=== PATIENT | female | born 1990 | race Hispanic/Latino ===

== ENCOUNTER 2017-12-21 18:42 | Emergency (ER) | payer BC, OTHER ==
[~2017-12-21 18:42] MED LIST: ISOVUE-370 76%-LOCM 1 ML ONE
[2017-12-21 19:51] LABS: Hemoglobin 10.1 g/dL (12.0-16.0); Mean Corpuscular HGB CONC 32.8 g/dL (32.0-36.0); Mean Corpuscular Hemoglobin 25.5 pg (27.0-31.0); Mean Corpuscular Volume 77.7 fL (78.0-98.0); Mean Platelet Volume 7.6 fL (7.4-10.4); Platelet Count 310 thou/uL (130-400); RBC Distribution Width 16.1 % (11.5-14.5); Red Blood Cell (RBC) Count 3.95 mill/uL (4.20-5.40); White Blood Cell (WBC) Count 3.1 thou/uL (4.8-10.8)
[2017-12-21 20:09] LABS: ALT (SGPT) 8 U/L (8-55); AST (SGOT) 14 U/L (5-34); Albumin 3.7 g/dL (3.5-5.0); Alkaline Phosphatase 114 U/L (40-150); Anion Gap 16 mmol/L (10-20); Anisocytosis SLIGHT = 6-15 cells (100X) (0-5/hpf); BUN (Urea Nitrogen) 9 mg/dL (7.0-18.7); Band 1 % (5-11); Bilirubin, Total 0.8 mg/dL (0.2-1.2); Calc. Creatinine Clearance 0 mL/min (70-130); Calcium 9.4 mg/dL (7.8-10.44); Carbon Dioxide 23 mmol/L (22-29); Chloride 101 mmol/L (98-107); Estimated GFR-MDRD Greater than 90; Globulin 4.4 g/dL (2.4-3.5); Glucose 73 mg/dL (70-105); Hypochromia SLIGHT = 6-15 cells (100X) (0-5/hpf); Lymphocytes 54 % (21-51); MDiff Complete? YES; Microcytosis SLIGHT = 6-15 cells (100X) (0-5/hpf); Monocytes 7 % (0-10); Neutrophil 38 % (42-75); PLT Morphology Comment Appears Adequate; Polychromasia SLIGHT = 2-3 cells (100X) (0-2/hpf); Potassium 3.7 mmol/L (3.5-5.1); Protein, Total 8.1 g/dL (6.0-8.3); Sodium 136 mmol/L (136-145)
[2017-12-22 00:03] LABS: Bilirubin Moderate (Negative); Blood, Urine Moderate (Negative); Clarity CLOUDY (Clear); Glucose, Urine (Dipstick) Negative (Negative); Leukocyte Trace (Negative); Nitrite Negative (Negative); Protein, Urine (Dipstick) 30 mg/dL (Neg-Trace); Specific Gravity, Urine 1.022 (1.002-1.036)
[2017-12-22 00:05] LABS: Bacteria/HPF Rare-Few HPF (None Seen); Hyaline Casts/LPF 7-10 HYALINE CAST LPF (0-3 Hyaline); Pathc Cast-AUWi Flag 0.72 (0-2.49)
[2017-12-22 00:06] LABS: Pregnancy Test - Urine (BHCG) Negative (Negative); Pregu Control Background? CLEAR/WHITE (CLR/WHITE); Pregu Control Bar Appear? YES (CONTROL BAR); Specific Gravity 1.022 (1.002-1.036)
[2017-12-22 00:18] LABS: Renal Epithelial None Seen HPF (0-3); Transitional Epithelial NONE SEEN HPF (0-3)
--- NOTE | 2017-12-22 08:39 | CT ---
PRELIMINARY REPORT/[facility]/EMERGENTY AFTER-HOURS PROCEDURE CT Abdomen and Pelvis With Intravenous Contrast CLINICAL HISTORY: 27 years old, female; Signs and symptoms; Fever and nausea and vomiting; Patient HX: Er 23; F28 prese [facility] ed for abd pain and fever. Pt reports issue has been on and off since june. Pt reports she had h er temp taken recently 103. Pt [facility] and they told her to come here to be evaluated because of her low red and white blood count. Pt reports loss of bartolome ght(10-13lb) since june due to her unable to eat or drink much water because food and water makes he r have gurgling/gas. Pt reports she took bc for 6month straight to keep her from having a period and she stopped and a irregular one which resulted in sharp pain on the right side. TECHNIQUE: Axial computed tomography images of the abdomen and pelvis with intravenous contrast. Coronal reformatted images were created and reviewed. COMPARISON: No relevant prior studies available. FINDINGS: Lung bases: No acute findings. No mass. No consolidation. ABDOMEN: Liver: No acute findings. No mass. Gallbladder and bile ducts: No calcified stones. No ductal dilation. Pancreas: No ductal dilation. No mass. Spleen: No acute findings. No mass. Adrenals: No mass. Kidneys and ureters: Bilateral punctate nonobstructing calculi. No hydronephrosis. No solid mass. Stomach and bowel: No definite evidence of bowel obstruction. Mildly distended air-fluid filled small bowel loops, nonspecific and can be seen with enteritis. Under-distended and air-distended colon segments. Fecal loading and punctate hyperdensities throughout the ascending colon which could relate to food/debris, ingested material. Diverticulosis. PELVIS: Appendix: No findings to suggest acute appendicitis. Bladder: No acute findings. No mass. Reproductive: No acute findings. ABDOMEN and PELVIS: Intraperitoneal space: No acute findings. No free air. No significant fluid collection. Bones/joints: No acute fracture. Soft tissues: No acute findings. Vasculature: No acute findings. No abdominal aortic aneurysm. Lymph nodes: No significant lymphadenopathy. IMPRESSION: Possible enteritis. Findings described above. Thank you for allowing us to participate in the care of your patient. Dictated and Authenticated by: Nikita Kessler MD 12/22/2017 1:25 AM Central Time ([place] & [place]) FINAL REPORT CT ABDOMEN AND PELVIS WITH CONTRAST: HISTORY: Abdominal pain and weight loss. COMPARISON: None. FINDINGS: Findings and impression are concordant with the preliminary report. Punctate bilateral renal calculi , nonobstructive. No other acute inflammatory process in the abdomen or pelvis. POS: ALLA
== END 2017-12-22 01:36 | disposition home or self-care (01) ==
LOC: ERS 18:42
DX: R63.3 Feeding difficulties (principal); D50.0 Iron deficiency anemia secondary to blood loss (chronic); D72.819 Decreased white blood cell count, unspecified; R50.9 Fever, unspecified; F41.9 Anxiety disorder, unspecified; Z79.899 Other long term (current) drug therapy
CPT/HCPCS: 36415; 74177; 80053; 81003; 81015; 81025; 85025; 96360

== ENCOUNTER 2018-11-23 14:44 | Inpatient (IN) | payer BC, OTHER ==
[2018-11-23] MEDS ORDERED: Lorazepam 2 MG/ML VIAL ONE (15:34)
--- NOTE | 2018-11-23 15:44 | RAD ---
XR Chest 1 View Portable HISTORY: Sepsis COMPARISON: None FINDINGS: The heart size is normal. The lungs are well expanded without focal areas of consolidation, pneumothorax or pleural effusions. IMPRESSION: No radiographic evidence of acute cardiopulmonary process.
[2018-11-23 15:46] LABS: Hemoglobin 7.6 g/dL (12.0-16.0); Mean Corpuscular HGB CONC 30.1 g/dL (32.0-36.0); Mean Corpuscular Hemoglobin 22.2 pg (27.0-31.0); Mean Corpuscular Volume 73.7 fL (78.0-98.0); Mean Platelet Volume 8.7 fL (7.4-10.4); Platelet Count 269 thou/uL (130-400); RBC Distribution Width 16.9 % (11.5-14.5); Red Blood Cell (RBC) Count 3.42 mill/uL (4.20-5.40); White Blood Cell (WBC) Count 2.8 thou/uL (4.8-10.8)
[2018-11-23 16:08] LABS: ALT (SGPT) Less than 7 U/L (8-55); AST (SGOT) 9 U/L (5-34); Albumin 3.2 g/dL (3.5-5.0); Alkaline Phosphatase 55 U/L (40-150); Anion Gap 14 mmol/L (10-20); BUN (Urea Nitrogen) 12 mg/dL (7.0-18.7); Bilirubin, Total 0.7 mg/dL (0.2-1.2); Calc. Creatinine Clearance 0 mL/min (70-130); Calcium 8.6 mg/dL (7.8-10.44); Carbon Dioxide 20 mmol/L (22-29); Chloride 103 mmol/L (98-107); Estimated GFR-MDRD Greater than 90; Globulin 3.8 g/dL (2.4-3.5); Glucose 78 mg/dL (70-105); Potassium 3.6 mmol/L (3.5-5.1); Sodium 133 mmol/L (136-145)
[2018-11-23 16:21] LABS: Anisocytosis SLIGHT = 6-15 cells (100X) (0-5/hpf); Band 2 % (5-11); Hypochromia SLIGHT = 6-15 cells (100X) (0-5/hpf); Lymphocytes 59 % (21-51); MDiff Complete? YES; Microcytosis SLIGHT = 6-15 cells (100X) (0-5/hpf); Monocytes 8 % (0-10); Neutrophil 30 % (42-75); Ovalocytes SLIGHT = 2-5 cells (100X) (0-1/hpf); Platelet Morphology Comment Appears Adequate; Poikilocytosis SLIGHT = 6-15 cells (100X) (0-5/hpf); Polychromasia SLIGHT = 2-3 cells (100X) (0-2/hpf); Schistocytes SLIGHT = 2-5 cells (100X) (0-1/hpf); Spherocytes SLIGHT = 1-5 cells (100X) (None Seen); Tear Drops SLIGHT = 2-5 cells (100X) (0-1/hpf)
[2018-11-23] MEDS ORDERED: VANCOMYCIN HCL IVPB ONE (16:30)
[2018-11-23] MEDS ORDERED: Piperacillin/Tazobactam 3.375 GM VIAL ONE (16:42)
[2018-11-23] MEDS ORDERED: CLINDAMYCIN IVPB ONE (16:45)
--- NOTE | 2018-11-23 17:59 | PDOC.FPRHP ---
- History of Present Illness Chief Complaint: Bilateral LE Ulcers History of Present Illness: Mrs. Bates is a 28 y/o female with history of severe anxiety, self- reported OCD, anorexia complicated by cachexia, and RA for which she has been taking daily immunosuppressive therapy since 2010, who presents to the ED with a 2-3 week history of bilateral ulcerations. The patient was extremely guarded, making the entire encounter difficult, because she stated that leaving her home and interacting with new people gives her "incredible anxiety". The patient's mother and father were in the room at the time of examination, and they assisted with providing the patient's history for much of the encounter. The patient states that the ulcerations began approximately 2-3 weeks prior, were located on the back of her calves, were associated with LE swelling and have been progressively erythema The patient did not endorse any noticeable drainage or purulent odor, although the ulcer on her right calve was frankly purulent. The patient's mother stated that the patient spent approximately 95% of her time in bed, and left her bed only to use the restroom. There are no pets in the house, nor is there any active construction or known toxic exposures. The patient's mother states that they went to an urgent care clinic 1-2 weeks prior with this same CC, for which they were given mupriocin ointment that they have been applying twice daily. The patient endorses fatigue, weakness, occasional headaches, thin/brittle hair without alopecia, and daily nausea and episodic diarrhea that are exacerbated by her anxiety. The patient went on to endorse a weight loss of approximately 10 pounds over the past several months, and that she is approximately 40 pounds underweight in general. The patient also endorses fevers ranging from 100.5 to 101.5 degrees almost daily for three years , which she attributes to her RA and immunosuppressive medication. She denies any changes in vision, ulcerations on her lips or mouth, dysphagia, noticeable LAD, CP, palpitations, SOB, vomiting, dysuria, vaginal discharge, bloody stools , or changes in the quality of her nails. Although the patient states that she had no other sores anywhere on her body, hospital staff stated that the mother admitted to additional sores on her back and buttocks. The patient states that she felt safe at home, and was not recently involved in any trauma or physical abuse. ED Course: In the ED, the patient received IV Vancomycin, Clindamycin, and Zosyn, as well as minimal amount of IV fluid with the use of a pediatric infusion pump. - Allergies/Adverse Reactions Allergies Allergy/AdvReac Type Severity Reaction Status Date / Time Sulfa (Sulfonamide Allergy Severe Verified 11/23/18 21:42 Antibiotics) - Home Medications Medication Instructions Recorded Confirmed Type Hydroxychloroquine Sulfate 200 mg PO HS 11/23/18 11/23/18 History [Plaquenil] clonazePAM [Klonopin] 1 mg PO BID 11/23/18 11/23/18 History - History PMHx: RA, Anxiety, Weight Loss complicated by Cachexia, and self-reported OCD PSHx: None FHx: Significant for extensive DM2, HTN, CAD and Anxiety Social: Denies x3, but admits to one-time use of CBD oil. - Review of Systems General: reports: fever/chills, weight/appetite/sleep changes, fatigue. denies : night sweats Eyes: denies: vision changes ENT: denies: rhinorrhea Respiratory: reports: cough, exercise intolerance. denies: shortness of breath Cardiovascular: reports: palpitation, edema. denies: chest pain Gastrointestinal: reports: nausea, diarrhea. denies: vomiting, abdominal pain, GI bleeding Genitourinary: denies: dysuria, discharge Skin: reports: lesions Musculoskeletal: reports: pain, stiffness, arthritis/arthralgias Neurological: reports: weakness. denies: seizure Psychological: reports: anxiety, other (OCD) - Vital signs BP: [104/76] HR: [98] RR: [8] Tmax: [--] Pox: [100]% on [Room] Wt: [28.5 kg] - Physical Exam Constitutional: NAD, awake, alert and oriented, other (Extreme Cachexia) HEENT: normocephalic and atraumatic, PERRLA, EOMI, conjunctiva clear, no scleral icterus, grossly normal vision, grossly normal hearing, MMM, oropharynx clear, good dention -HEENT: Thin/brittle hair w/o alopecia Neck: FROM, trachea midline, no LAD, no JVD Chest: no-tender to palpation, no lesions Heart: RRR, normal S1/S2, no murmurs/rubs/gallops, pulses present Lungs: CTAB, no respiratory distress, good air movement, no rales/rhonchi, no wheezing, no retractions Abdomen: soft, non-tender, no masses/distention Musculoskeletal: ROM grossly normal, other (Extreme wasting w/ 2/5 strength in all 4 extremities) Neurological: no focal deficit, CN II-XII intact, normal sensation Skin: capillary refill <2 seconds, no jaundice -Skin: Right LE: 2x2 ulceration with minimal purulent drainage on lateral aspect of calf, with 3-5 cm of surrounding erythema. Left LE: Minimal ulceration without obvious purulent drainage, with 3-5 cm of surrounding erythema. Psychiatric: other -Psychiatric: Guarded affect, obvious distress with physical contact, periodically crying throughout evaluation. FMR H&P: Results - Labs Result Diagrams: 11/23/18 15:18 11/23/18 15:18 Lab results: WBC 2.8 thou/uL (4.8-10.8) L 11/23/18 15:18 Hgb 7.6 g/dL (12.0-16.0) L 11/23/18 15:18 Hct 25.2 % (36.0-47.0) L 11/23/18 15:18 MCV 73.7 fL (78.0-98.0) L 11/23/18 15:18 Plt Count 269 thou/uL (130-400) 11/23/18 15:18 Band Neuts % (Manual) 2 % (5-11) L 11/23/18 15:18 Sodium 133 mmol/L (136-145) L 11/23/18 15:18 Potassium 3.6 mmol/L (3.5-5.1) 11/23/18 15:18 Chloride 103 mmol/L (98-107) 11/23/18 15:18 Carbon Dioxide 20 mmol/L (22-29) L 11/23/18 15:18 BUN 12 mg/dL (7.0-18.7) 11/23/18 15:18 Creatinine 0.57 mg/dL (0.6-1.1) L 11/23/18 15:18 Glucose 78 mg/dL (70-105) 11/23/18 15:18 Lactic Acid 1.2 mmol/L (0.5-2.2) 11/23/18 15:46 Calcium 8.6 mg/dL (7.8-10.44) 11/23/18 15:18 Total Bilirubin 0.7 mg/dL (0.2-1.2) 11/23/18 15:18 AST 9 U/L (5-34) 11/23/18 15:18 ALT Less than 7 U/L (8-55) L 11/23/18 15:18 Alkaline Phosphatase 55 U/L (40-150) 11/23/18 15:18 Serum Total Protein 7.0 g/dL (6.0-8.3) 11/23/18 15:18 Albumin 3.2 g/dL (3.5-5.0) L 11/23/18 15:18 - Radiology Interpretation Chest x-ray Status: image reviewed by me (BG) Additional comment: BG FMR H&P: A/P - Problem List (1) Pressure ulcer Current Visit: Yes Status: Acute Code(s): L89.90 - PRESSURE ULCER OF UNSPECIFIED SITE, UNSPECIFIED STAGE (2) Anxiety Current Visit: Yes Status: Chronic Code(s): F41.9 - ANXIETY DISORDER, UNSPECIFIED (3) Cachexia Current Visit: Yes Status: Chronic Code(s): R64 - CACHEXIA (4) Rheumatoid arthritis Current Visit: Yes Status: Acute Code(s): M06.9 - RHEUMATOID ARTHRITIS, UNSPECIFIED (5) Anemia Current Visit: Yes Status: Acute Code(s): D64.9 - ANEMIA, UNSPECIFIED - Plan 1. LE Pressure Ulcers, bilateral -History of malnutrition/cachexia -Location of ulcers consistent with immobilized state -Systemic response to infection difficult to adequately evaluate due to continued immunosuppressive medication -Cellulitis less likely based on physical examination -WBC: 2.8 -CRP: Pending -ESR: Pending -Wound Cultures: Pending -Initiate Clindamycin 25 mg/kg/day spread over Q8H dosing -Additional ulcers may be present on back/buttock and will require further investigation -Consult Wound Care for adequate staging, cleaning, and dressing of wounds 2. Anxiety -Long history of severe anxiety, confirmed by parents during evaluation -Administer home dosing of Klonopin 0.5 mg PO BID -Consider adjunct medications such as Mirtazapine or Seroquel -Consider Psychiatric consult 3. Rheumatoid Arthritis -Continue home Hydroxychloroquine 200 mg PO daily -Consider changing RA medication in OP setting 4. Cachexia -Encourage adequate PO intake, consider nutritional supplementation if necessary -Consider Tetanus Shot, TB Quantiferon test -Consider Plug Stitcher consult 5. Anemia -H.6, Hct: 25.2, MCV: 73.7, slight hypochromia, Fe: 9, TIBC: 139 -Likely secondary to malnutrition -Continue to monitor, consider Fe supplementation if stay prolonged Dispo: Admit to Medical Floor and initiate IV antibiotic therapy with close Wound Care F/U. Minimize hospital staff involvement in patient care due to gross psychiatric problems and guarded affect. Encourage PO intake and continued IV fluid resuscitation. Consider additional Psychiatry and Plug Stitcher consults. FMR H&P: Upper Level - Pertinent history 28 yo female with complex medical history including RA and likely psychiatric/ eating disorder presents for evaluation of lower extremity wounds. Patient has been essentially bed bound for over one year. Patient reports extensive anxiety history that has limited almost every ADL including eating, leaving her house, doctor visits, and family interactions. Patient refused multiple treatments in ED. Please see internal consultant note above for further information. Physical Exam: General: Cachectic female lying in bed, NAD CV: RRR, no murmurs Respiratory: CTA, no wheezing Extremities: focal swelling to bilateral lower extremities. Contractures and nodules present to hands. Localized redness with eschars present on bilateral ankles. No drainage or fluctuance. Skin: unable to be completely examined secondary to patient tolerance Psych: Anxious mood with congruent affect, tearful at times Nuero: No focal deficits - Plan Date/Time: 11/23/18 [id number] I, Johnson Red MD, have evaluated this patient and agree with findings/ plan as outlined by internal consultant resident. Pertinent changes/additions are listed here. Lower Extremity Cellulitis - Likely secondary to pressure ulcers - Decrease coverage to Clindamycin - Blood cultures pending - Wound Care consultation placed - Will consider ordering XR imaging of lower extremities after discussing with patient in AM. RA - Continue home medications, but will need to have change as outpatient due to side effects of medication Neutropenia - ANC 896 - Neutropenic precautions given Anemia - Likely iron deficiency - Iron, TIBC, and Ferritin pending Eating Disorder - Likely would be candidate for inpatient admission for psychiatric evaluation - Will give Clonazepam BID - Spoke case over with Dr. Gaffney and she recommended Mirtazapine 15 mg or Seroquel - Very important to build trust with this patient and will advise limited visitors to her room as well as with the primary team. CODE STATUS: DNAR PCP: Dr. Gill Jimenez Disposition: Stable, overall vermin exterminator prognosis guarded. Addendum - Attending - Attending Attestation Date/Time: 11/23/18 [id number] I personally evaluated the patient and discussed the management with Dr. Henderson I agree with the History, Examination, Assessment and Plan documented above with any addition or exceptions noted below. 28 yo cachetic female with severe malnutrition brought in by parents to ER because of lower extremity sores and concern for sepsis.The patient states she has intermittent fever. 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 Patient diet is limited consisting mainly of limited carbohydrates the patient states she is homebound and bedbound because of anxiety and RA affecting her knees. She can ambulate to bathroom. Patient with OCD wears facemask refuses to take off for exam and has fixation on need for klonopin for her severe anxiety. Patient was seen for initial office visit 12/16/2017 at [facility] for evaluation and intake but she was unable to complete the initial patient encounter due to anxiety, she was evaluated briefly in the Hallway had overwhelming anxiety and was taken home by her Mother. Her BMI at that time was 15 with a weight of 81 lbs she currently weighs in the 60 lbs range. The patient is defensive about her eating and weight loss and states she has lost 30 lbs over 2 years due to extreme anxiety and OCD. The patient was referred to Dr Celestino Alvarado and seen 01/06/2018 for right upper quadrant abdominal pain, nausea, rectal bleeding and weight loss she did not follow up with the recommended test or endoscopy. The patient refuses a full exam she is strikingly cachetic and lack insight into the severity of her condition she remains fixated on the fact she is in her present state due to the lack of klonopin. Her lower extremities have bilateral supramalleolar posterior lateral 4-5 cm circular purpuric lesions with a central eschar worrisome for vascular lesions. The patient left foot is swollen and the lesions are tender to palpation. Assessment Severe malnutrition needs further evaluation and treatment Severe Anxiety ,Depression and OCD concern for eating disorder patient reluctant to discuss any body dysmorphia etc... She is a DNR status and states she wants to be left alone. Hx of Rheumatoid Arthritis with anemia and relative leukopenia formerly on Humira. Vascular ulcers need further evaluation flow studies, plain films, ESR and CRP however patient anxiety must be addressed and a trusting relationship established . Klonopin will be started and rec mirtazipine 15 mg q HS if she is willing to take an additional medication for anxiety this would potentially stimulate an appetite as well. She will have dietary /nutrition consult in AM ultimately she should be transferred to an eating d/o facility and have a formal Psychiatric consultation. She has severe life threatening malnutrition and her insight an additionally her Mothers insight into this severity appears limited and denied currently. Wound therapy will be consulted as well she does have what sounds like stage 2/ 2 sacral breakdown but is refusing an exam presently. I am hopeful that the patient will agree to stay long enough to enable us to provide resources for her to recover.
[2018-11-23] MEDS ORDERED: Ondansetron PF 4 MG/2 ML Vial IVP PRN (19:18)
[2018-11-23] MEDS ORDERED: Lactated Ringer's 1,000 ML IV SCH (19:18)
[2018-11-23] MEDS ORDERED: Acetaminophen 325 MG TAB PO PRN (19:18)
[2018-11-23] MEDS ORDERED: Ondansetron ODT 4 MG TAB SL PRN (19:18)
[2018-11-23] MEDS: Sodium Chloride 0.9% 1,000 ML IV SCH (21:10)
[2018-11-23] MEDS: clonazePAM 0.5 MG TAB PO SCH (21:18)
[2018-11-23 21:39] LABS: Iron 9 ug/dL (50-170); Iron Binding Capacity, Total 139 mcg/dL (265-497); Magnesium 1.8 mg/dL (1.6-2.6); Phosphorus 3.6 mg/dL (2.3-4.7)
[2018-11-23 21:58] LABS: Ferritin 85.65 ng/mL (10-291); Thyroid Stimulating Hormone 0.8855 uIU/mL (0.35-4.94)
[2018-11-23] MEDS ORDERED: Loperamide HCl 1 MG/7.5 ML UDCUP PO PRN (22:01)
[2018-11-23] MEDS ORDERED: Piperacillin/Tazobactam 3.375 GM in Sodium Chloride 0.9% 100 ML IVPB SCH (23:59)
[2018-11-24] MEDS ORDERED: CLINDAMYCIN IVPB SCH (02:00)
[2018-11-24 05:52] LABS: ALT (SGPT) Less than 7 U/L (8-55); AST (SGOT) 9 U/L (5-34); Albumin 2.6 g/dL (3.5-5.0); Alkaline Phosphatase 46 U/L (40-150); Anion Gap 12 mmol/L (10-20); BUN (Urea Nitrogen) 9 mg/dL (7.0-18.7); Bilirubin, Total 0.5 mg/dL (0.2-1.2); Calc. Creatinine Clearance 80 mL/min (70-130); Calcium 8.4 mg/dL (7.8-10.44); Carbon Dioxide 20 mmol/L (22-29); Chloride 104 mmol/L (98-107); Estimated GFR-MDRD Greater than 90; Globulin 3.3 g/dL (2.4-3.5); Potassium 4.1 mmol/L (3.5-5.1); Protein, Total 5.9 g/dL (6.0-8.3); Sodium 132 mmol/L (136-145)
[2018-11-24 05:58] LABS: Glucose 58 mg/dL (70-105); Hemoglobin 6.2 g/dL (12.0-16.0); Lymphocytes 86 % (21-51); MDiff Complete? YES; Mean Corpuscular HGB CONC 30.6 g/dL (32.0-36.0); Mean Corpuscular Hemoglobin 22.5 pg (27.0-31.0); Mean Corpuscular Volume 73.4 fL (78.0-98.0); Mean Platelet Volume 8.9 fL (7.4-10.4); Monocytes 2 % (0-10); Neutrophil 12 % (42-75); Platelet Count 227 thou/uL (130-400); Platelet Morphology Comment Appears Adequate; Red Blood Cell (RBC) Count 2.78 mill/uL (4.20-5.40); White Blood Cell (WBC) Count 1.8 thou/uL (4.8-10.8)
--- NOTE | 2018-11-24 07:15 | PDOC.FM ---
- Subjective Subjective: Ms. Bates says she feels very anxious and this was worsened by the inability to sleep last night with people coming in and out of room. She has been unable to eat much d/t anxiety as well. Has been drinking juice, one bite of jello, and some hard candy.Denies nausea,vomiting. - Objective Vital Signs & Weight: Vital Signs (12 hours) Temp Pulse Resp BP Pulse Ox 11/24/18 07:04 99.2 F 112 H 18 107/74 99 11/24/18 04:27 98.5 F 108 H 16 102/68 100 11/24/18 00:00 98.4 F 108 H 16 108/75 100 Weight Weight 30.345 kg I&O: 11/23/18 11/24/18 11/25/18 06:59 06:59 06:59 Intake Total 840 Balance 840 Result Diagrams: 11/24/18 05:10 11/24/18 05:10 Phys Exam - Physical Examination cachectic, anxious Respiratory: no wheezing, clear to auscultation bilateral Cardiovascular: RRR, no significant murmur Gastrointestinal: non-tender, no distention 4/5 strength BLE Deviation from normal: anxious Skin: cap refill <2 seconds Dx/Plan (1) Severe protein-calorie malnutrition Code(s): E43 - UNSPECIFIED SEVERE PROTEIN-CALORIE MALNUTRITION Status: Acute (2) Neutropenia Code(s): D70.9 - NEUTROPENIA, UNSPECIFIED Status: Acute (3) Iron deficiency anemia due to dietary causes Code(s): D50.8 - OTHER IRON DEFICIENCY ANEMIAS Status: Acute (4) Anemia Code(s): D64.9 - ANEMIA, UNSPECIFIED Status: Acute (5) Pressure ulcer Code(s): L89.90 - PRESSURE ULCER OF UNSPECIFIED SITE, UNSPECIFIED STAGE Status : Acute (6) Rheumatoid arthritis Code(s): M06.9 - RHEUMATOID ARTHRITIS, UNSPECIFIED Status: Acute (7) Anxiety Code(s): F41.9 - ANXIETY DISORDER, UNSPECIFIED Status: Chronic (8) Cachexia Code(s): R64 - CACHEXIA Status: Chronic - Plan Plan: Chronic pressure wounds - complicated by poor wound healing 2/2 severe malnutrition/cachexia -Cultures Pending -Will d/c Clindamycin and transition to PO keflex. Appearance more consistent with chronic poor wound healing rather than acute cellulitis/erysipelas. -Consult Wound Care Anxiety - Long history of severe anxiety, confirmed by parents during evaluation - Klonopin BID - consult [facility] - will discuss case with psychology, Dr. Roslyn Ureña today as well for assistance - start mirtazapine tonight Anemia - likely mixture of severe iron deficiency anemia as well as chronic disease - Hgb 6.2, will transfuse 1 unit today Neutropenia - Neutropenic precautions - will continue to monitor Rheumatoid Arthritis - On home Hydroxychloroquine 200 mg PO daily - has seen stick puller twice in past year for bloodwork. Was to be started on humira but unable 2/2 hematologic derangements Severe malnutrition 2/2 eating disorder -Encourage adequate PO intake, Decision Analyst consulted - Likely would be candidate for inpatient management. Patient needs multidisciplinary approach to care. Addendum - Attending - Attending Attestation Date/Time: 11/24/18 1116 I personally evaluated the patient and discussed the management with Dr. Mtz. I agree with the History, Examination, Assessment and Plan documented above with any addition or exceptions noted below. Patient is 28 yo with PMH of severe anxiety resulting in anorexia and cachexia, RA who is here with chronic non healing wounds. Family's complaint originally are the wounds on her lower extremities, but she also has scatted wounds across her body due to her spending the majority of the time in her bed. Review of the lower extremity wounds does not show severe acute infection, but instead appear to be chronically inflamed and ulcerated. Wound care is on board. She is also on IV abx but can likely be transitioned to PO as I do not feel infection is her primary concern. The patient has a severely low BMI, with current body weight barely over 50 pounds. She reports she does not want to eat at hospital, because she feels "more comfortable" at home and will eat there. However, given her history and the report of her parents, she will not eat at home either due to "anxiety". Patient is very resistant to try new medications for her anxiety such as SSRI therapy or Mirtazepine due to "side effects", and instead prefers to remain on Klonopin, which obviously does not have her symptoms under control. Her albumin is very low, and she has systemic evidence of malnutrition and P/C malnutrition. She is near pancytopenic with the exception of platelet counts. This could be both due to nutritional status and her Plaquinil therapy for RA. However, patient is very resistant to stop this medication, and we will discuss with her stick puller. Patient reports that she just wants to go home , but makes contradicting statements as to why she prefers to go home. She is tearful during our exam, but resistant to make any changes. She is severely anemic and is receptive at the current moment to blood transfusion. Fortunately , most of her electrolytes are within normal ranges. However, she is having difficulty maintaining glucose homeostasis as evidenced by AM hypoglycemia. We will be starting her on D5NS fluids to help with this. Patient is in severe need of psychiatric evaluation and placement as she is not far from due to her eating disorder and anxiety. We are consulting Dietary, [facility], and our clinic psychologist to see if they can help patient understand how dire her situation is. Once we approached this conversation, the parents finally opened up that the true reason they brought her to hospital is because they know she is near . This will require a multidisciplinary effort to improve her condition at all, and may require an attempt at declaring her medically unable to make her own decisions and starting tube feeds versus TPN. Anticipate a lengthy hospitalization due to all these moving and dynamic parts complicating her healing process.
[2018-11-24] MEDS: Sodium Chloride 0.9% 1,000 ML IV SCH (08:17)
[2018-11-24] MEDS: clonazePAM 0.5 MG TAB PO SCH ×2 (08:17→22:19)
[2018-11-24] MEDS: Dextrose 5 % And 0.9 % NaCl 1,000 ML IV SCH ×2 (11:00→18:03)
[2018-11-24] MEDS ORDERED: Ondansetron ODT 4 MG TAB PO PRN (18:03)
[2018-11-24] MEDS ORDERED: Cephalexin 250 MG/5 ML Oral Suspension PO SCH (21:00)
[2018-11-24] MEDS ORDERED: Hydroxychloroquine Sulfate 200 MG TAB PO SCH (21:00)
[2018-11-24] MEDS ORDERED: Prevnar 13-Val Conj/PF 0.5 ML SYRINGE IM ONE (21:00)
[2018-11-24] MEDS ORDERED: Bismuth Subs 17.5mg/mL Susp 120 ML BOT PO PRN (21:38)
[2018-11-24] MEDS: Mirtazapine 15 MG TAB PO SCH (21:57)
[2018-11-24] MEDS ORDERED: Cephalexin 250 MG CAP PO SCH (22:15)
[2018-11-24] MEDS: Loperamide HCl 2 MG CAP PO PRN (22:18)
[2018-11-24] MEDS: Ondansetron PF 4 MG/2 ML Vial IVP PRN (22:20)
[2018-11-25 05:52] LABS: ALT (SGPT) Less than 7 U/L (8-55); AST (SGOT) 12 U/L (5-34); Albumin 2.7 g/dL (3.5-5.0); Alkaline Phosphatase 52 U/L (40-150); Anion Gap 12 mmol/L (10-20); BUN (Urea Nitrogen) Less than 4 mg/dL (7.0-18.7); Bilirubin, Total 0.6 mg/dL (0.2-1.2); Calc. Creatinine Clearance 75 mL/min (70-130); Calcium 8.4 mg/dL (7.8-10.44); Carbon Dioxide 22 mmol/L (22-29); Chloride 104 mmol/L (98-107); Estimated GFR-MDRD Greater than 90; Globulin 3.5 g/dL (2.4-3.5); Glucose 76 mg/dL (70-105); Potassium 3.7 mmol/L (3.5-5.1); Protein, Total 6.2 g/dL (6.0-8.3); Sodium 134 mmol/L (136-145)
[2018-11-25 06:01] LABS: Hemoglobin 8.7 g/dL (12.0-16.0); Hypochromia SLIGHT = 6-15 cells (100X) (0-5/hpf); Lymphocytes 72 % (21-51); MDiff Complete? YES; Mean Corpuscular HGB CONC 31.1 g/dL (32.0-36.0); Mean Corpuscular Hemoglobin 23.4 pg (27.0-31.0); Mean Corpuscular Volume 75.3 fL (78.0-98.0); Mean Platelet Volume 9.2 fL (7.4-10.4); Monocytes 2 % (0-10); Neutrophil 26 % (42-75); Platelet Count 227 thou/uL (130-400); Platelet Morphology Comment Appears Adequate; RBC Distribution Width 17.9 % (11.5-14.5); Red Blood Cell (RBC) Count 3.73 mill/uL (4.20-5.40); White Blood Cell (WBC) Count 2.2 thou/uL (4.8-10.8)
--- NOTE | 2018-11-25 06:35 | PDOC.FM ---
- Subjective Subjective: Mother was present in room this morning. Father not present. Patient reports she was very proud of herself because she ate some iceland[place] fries and mashed potato provided from the hospital. This was a big deal because she typically only ever eats her mom's food. She has more energy and feels her RA has improved after the blood transfusion yesterday. Both patient and mother believe they need to be discharged today and were very resistant to her being here another day. They feel that the hospital is a stressful environment and that patient needs to be at home to get better. Mother is primary traveling construction superintendent of patient. She is bedbound and typically lays on a mattress at home. Mother helps her to bathroom, wipes her, cooks for her. - Objective Vital Signs & Weight: Vital Signs (12 hours) Temp Pulse Resp BP Pulse Ox 11/25/18 04:00 97.8 F 103 H 16 112/76 100 11/25/18 00:00 97.9 F 100 16 112/77 100 11/24/18 20:00 97.8 F 100 18 115/77 99 Weight Admit Weight 30.345 kg Weight 30.345 kg I&O: 11/23/18 11/24/18 11/25/18 06:59 06:59 06:59 Intake Total 840 900 Balance 840 900 Result Diagrams: 11/25/18 04:38 11/25/18 04:38 Phys Exam - Physical Examination Constitutional: NAD (cachectic) Respiratory: no wheezing, clear to auscultation bilateral Cardiovascular: RRR, no significant murmur Gastrointestinal: non-tender (thin), no distention Musculoskeletal: no edema RLE with bandage in place Neurological: non-focal Skin: no rash Dx/Plan (1) Severe protein-calorie malnutrition Code(s): E43 - UNSPECIFIED SEVERE PROTEIN-CALORIE MALNUTRITION Status: Acute (2) Neutropenia Code(s): D70.9 - NEUTROPENIA, UNSPECIFIED Status: Acute (3) Iron deficiency anemia due to dietary causes Code(s): D50.8 - OTHER IRON DEFICIENCY ANEMIAS Status: Acute (4) Anemia Code(s): D64.9 - ANEMIA, UNSPECIFIED Status: Acute (5) Pressure ulcer Code(s): L89.90 - PRESSURE ULCER OF UNSPECIFIED SITE, UNSPECIFIED STAGE Status : Acute (6) Rheumatoid arthritis Code(s): M06.9 - RHEUMATOID ARTHRITIS, UNSPECIFIED Status: Acute (7) Anxiety Code(s): F41.9 - ANXIETY DISORDER, UNSPECIFIED Status: Chronic (8) Cachexia Code(s): R64 - CACHEXIA Status: Chronic - Plan Plan: Chronic pressure wounds, lower extremity and sacral - complicated by poor wound healing 2/2 severe malnutrition/cachexia - Continue PO keflex (11/24). Appearance more consistent with chronic poor wound healing rather than acute cellulitis/erysipelas. - Wound Care consulted Anxiety - Long history of severe anxiety, previously had been prescribed antidepressants including paxil and zoloft but inability to tolerate side effects - Klonopin BID, will continue titration and increase back to prescribed home dose today - MR to rescreen today - Patient seen by Dr. Roslyn Ureña today for assessment. 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 Also concern for OCD. - Mirtazapine was ordered, patient refused Severe malnutrition 2/2 disordered eating -Encourage adequate PO intake, Director Of Quality Improvement consulted. Patient agreeable to try non -dairy supplementation drink. - Patient needs multidisciplinary approach to care. and would benefit from inpatient eating disorder facility. CM to give information on these facilities as family likely unaware these services are available. Anemia - likely mixture of severe iron deficiency anemia as well as chronic disease - Hgb 6.2, transfused 1 u prbc 11/24, repeat Hgb 8.7 Neutropenia - Neutropenic precautions - will continue to monitor Rheumatoid Arthritis - Was on home Hydroxychloroquine 200 mg PO daily, discontinued in hospital - has seen chemical processing supervisor twice in past year for bloodwork. Was to be started on humira but unable 2/2 hematologic derangements Dispo: will continue to work with CM and MR reeval for further recommendations. Consider appropriateness of APS involvement as mother is primary traveling construction superintendent and seems to be enabling patient to continue lifestyle that is harmful to herself. Patient and mother desire to be discharged home today. Patient not safe for discharge. Patient not interested in NG feedings. Could consider PPN tomorrow. Patient desires to try supplemental drink only. She says she would be unable to eat 3 meals per day. Addendum - Attending - Attending Attestation Date/Time: 11/25/18 9913 I personally evaluated the patient and discussed the management with Dr. Mtz. I agree with the History, Examination, Assessment and Plan documented above with any addition or exceptions noted below. Patient here with original concern for cellulitis and LE ulcers but her need from hospitalization results from her severe malnourishment. She did have some drastic improvements last night in that she was actually able to tolerate some PO, and both the patient and family are excited that she made this progress. She was originally open this morning to trying liquid supplements as well. However, upon repeat discussion this morning, the patient and mother are unhappy that our team does not feel the patient is stable for discharge. They feel that the patient cannot "heal" here due to the high stress of being in the hospital. However, our team does not feel that the patient has demonstrated that she or her family is invested in her future survival enough to ensure a safe discharge and good outcome. CM has been consulted to help provide information relating to inpatient eating disorder facilitates, and MHMR is involved in the case with plans to re-screen today. Dietary has even recommending that to meet nutritional needs for weight gain that patient either needs TPN or tube feeds, but the patient refuses these option currently. She is feeling somewhat improved s/p transfusion, but her nutritional status continues to be very dangerous and the patient could expect severe complications or if she continues on current trajectory.
[2018-11-25] MEDS: Dextrose 5 % And 0.9 % NaCl 1,000 ML IV SCH (08:27)
[2018-11-25] MEDS: Cephalexin 250 MG CAP PO SCH ×2 (08:28→21:51)
[2018-11-25] MEDS: Loperamide HCl 2 MG CAP PO PRN ×2 (08:28→21:53)
[2018-11-25] MEDS: clonazePAM 1 MG TAB PO SCH ×2 (10:02→21:51)
[2018-11-25] MEDS: Ondansetron PF 4 MG/2 ML Vial IVP PRN ×3 (10:10→21:53)
--- NOTE | 2018-11-25 13:57 | PDOC.EVN ---
Event Note - Event Note Event Note: Had a lengthy visit with Shara and her mother. They had really wanted to go home today and at the beginning of our discussion and talked about leaving AMA. I explained to them the severity of Shara's health and how refusing medical care and returning home could be life threatening. We discussed Shara's anxiety and her hesitations on remaining in the hospital. We discussed the effects of her malnutrition on her overall health and the need for more aggressive therapy. Her mother expressed understanding and noted to Shara how it has been a burden to be her sole outcome analyst. She said that she will not be the one responsible for Shara's . She also shared how she has done all she can to care for her but there is nothing more she can do and that Shara needs medical care that she cannot provide at home. We discussed treatment options and scenarios. Patient would not be interested at all in going to a facility specialized in rehabilitation for eating disorders. Mother notes that she cannot drive out of town. Patient notes her desire to be healthy and to get stronger. She ate a hospital pancake today which was a really big deal for her. She is motivated to make change and to prove herself. We discussed nutrition options. She is not interested in NG feedings as tube would heighten her anxiety and nausea. She is open to starting PPN. Will discuss with nutrition team to start this today. I discussed how it will be a long process for recovery and that I am unable to make her guarantees as to the length of her hospitalization. Shara mentions how difficult this is for her and asked for patience with her when her anxiety flares up. We together decided to take things day by day. We discussed her anxiety treatment. Patient will try mirtazipine tonight. Case discussed with case management as well.
[2018-11-25] MEDS ORDERED: Fat Emulsion 125 ML IVPB SCH (15:15)
[2018-11-25] MEDS ORDERED: ADMIXTURE FEE CHEMO IVPB SCH (15:30)
[2018-11-25] MEDS ORDERED: FAT EMULSION IVPB SCH (15:30)
[2018-11-25] MEDS: D5W-AA 4.25% with LYTES 1,000 ML IV SCH (17:18)
[2018-11-25] MEDS: Mirtazapine 15 MG TAB PO SCH (21:51)
[2018-11-26] MEDS ORDERED: ADMIXTURE FEE CHEMO IVPB SCH ×2 (05:00→09:00)
[2018-11-26] MEDS ORDERED: FAT EMULSION IVPB SCH ×2 (05:00→09:00)
[2018-11-26] MEDS: D5W-AA 4.25% with LYTES 1,000 ML IV SCH ×3 (05:22→16:55)
--- NOTE | 2018-11-26 06:35 | PDOC.FM ---
- Subjective Subjective: Shara reports feeling awful this morning. She feels she is starting to have an RA flare after not being on plaquenil for a few days. She reports feeling achy and tired. Last night ate one slovak brown and 4 spoons of mashed potatoes. Did not like supplemental drink. Feels new medications are making her nauseous. - Objective Vital Signs & Weight: Vital Signs (12 hours) Temp Pulse Resp BP Pulse Ox 11/26/18 04:57 99.1 F 113 H 20 114/70 100 11/26/18 00:00 97.6 F 100 20 107/74 100 11/25/18 20:00 97.9 F 99 20 107/74 98 Weight Admit Weight 30.345 kg Weight 29.143 kg I&O: 11/24/18 11/25/18 11/26/18 06:59 06:59 06:59 Intake Total 840 900 600 Balance 840 900 600 Result Diagrams: 11/26/18 06:11 11/26/18 06:11 Phys Exam - Physical Examination Constitutional: NAD (cachectic) HEENT: moist MMs Respiratory: no wheezing, clear to auscultation bilateral Cardiovascular: RRR, no significant murmur Gastrointestinal: non-tender, positive bowel sounds Musculoskeletal: pulses present Neurological: non-focal Psychiatric: normal affect Skin: normal turgor Dx/Plan (1) Severe protein-calorie malnutrition Code(s): E43 - UNSPECIFIED SEVERE PROTEIN-CALORIE MALNUTRITION Status: Acute (2) Neutropenia Code(s): D70.9 - NEUTROPENIA, UNSPECIFIED Status: Acute (3) Iron deficiency anemia due to dietary causes Code(s): D50.8 - OTHER IRON DEFICIENCY ANEMIAS Status: Acute (4) Anemia Code(s): D64.9 - ANEMIA, UNSPECIFIED Status: Acute (5) Pressure ulcer Code(s): L89.90 - PRESSURE ULCER OF UNSPECIFIED SITE, UNSPECIFIED STAGE Status : Acute (6) Rheumatoid arthritis Code(s): M06.9 - RHEUMATOID ARTHRITIS, UNSPECIFIED Status: Acute (7) Anxiety Code(s): F41.9 - ANXIETY DISORDER, UNSPECIFIED Status: Chronic (8) Cachexia Code(s): R64 - CACHEXIA Status: Chronic - Plan Plan: Severe malnutrition 2/2 disordered eating - BMI 13 - Encourage PO intake, Accounts Collector consulted. Does not like supplement drink. Refuses NG feeds. Will discuss TPN in the coming days. - PPN and lipids started 11/25. Will closely monitor electrolytes, I/Os, daily weights. - Patient needs multidisciplinary approach to care. and would benefit from inpatient eating disorder facility, however patient not currently interested. Chronic pressure wounds, lower extremity and sacral - complicated by poor wound healing 2/2 severe malnutrition/cachexia - Appearance more consistent with chronic poor wound healing rather than acute cellulitis/erysipelas. - Wound Care consulted - Will discontinue PO keflex today Anxiety - Long history of severe anxiety, previously had been prescribed antidepressants including paxil and zoloft but inability to tolerate side effects - Klonopin BID - [facility] has screened, patient not currently suicidal and unable to receive inpatient services in their facilities since she cannot perform all ADLs - Patient seen by Dr. Roslyn Ureña. 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 Also concern for OCD. - Mirtazapine started 11/25, unsure if patient will be compliant in taking it Anemia - likely mixture of severe iron deficiency anemia as well as chronic disease - Hgb 6.2, transfused 1 u prbc 11/24, repeat Hgb improvement Neutropenia - Neutropenic precautions - will continue to monitor Rheumatoid Arthritis - Was on home Hydroxychloroquine 200 mg PO daily, discontinued initially. No current concern for infection. Patient really feels this will help her. Will restart and also offer NSAIDs prn. - has seen lawnmower repair mechanic twice in past year for bloodwork. Was to be started on humira but unable 2/2 hematologic derangements Dispo: Continue PPN and lipids. Patient will likely be here for a while. Addendum - Attending - Attending Attestation Date/Time: 11/26/18 1120 I personally evaluated the patient and discussed the management with Dr. Mtz. I agree with the History, Examination, Assessment and Plan documented above with any addition or exceptions noted below. Patient here for cachexia in the setting of anxiety and OCD, as well as chronic non healing leg and back wounds related to homebound status. Her wounds do not look overly infected and we will be stopping PO abx at this time. Family appears to now be on board with the thought that the true reason for hospitalization is the severe malnourishment that is threatening the life of the patient. She has for now accepted PPN as a form of nutrition and we are working to encourage PO intake as much as possible. MHMR on board, and our staff psychologist has also evaluated the patient. We will see how PPN goes over the next couple of days and then approach the subject of senior living TPN. Patient and family not interested in treatment at eating disorder facility. She did take Remeron last night, but I am uncertain if she will agree to continue that medication. We are working continuously to develop the trust of the patient so that way she is a team player in her own healthcare. It would not surprise me if she eventually reaches a point where she chooses to leave AMA, but her parents are coming on board to the idea that there is no easy fix for this and she will need regional intermodal truck driver monitoring and therapy. Sis increased to help with her anxiety, and will work to limit people coming into her room as this flares her anxiety. Prealbumin checked and we will be trending this.
[2018-11-26 06:46] LABS: INR-International Normal Ratio 1.2; Prothrombin Time 15.3 SEC (12.0-14.7)
[2018-11-26 07:02] LABS: ALT (SGPT) Less than 7 U/L (8-55); AST (SGOT) 10 U/L (5-34); Albumin 2.9 g/dL (3.5-5.0); Alkaline Phosphatase 47 U/L (40-150); Anion Gap 9 mmol/L (10-20); BUN (Urea Nitrogen) 9 mg/dL (7.0-18.7); Bilirubin, Total 0.5 mg/dL (0.2-1.2); Calc. Creatinine Clearance 76 mL/min (70-130); Calcium 8.5 mg/dL (7.8-10.44); Carbon Dioxide 26 mmol/L (22-29); Chloride 103 mmol/L (98-107); Estimated GFR-MDRD Greater than 90; Globulin 3.7 g/dL (2.4-3.5); Glucose 98 mg/dL (70-105); Magnesium 2.2 mg/dL (1.6-2.6); Potassium 4.3 mmol/L (3.5-5.1); Protein, Total 6.6 g/dL (6.0-8.3); Sodium 134 mmol/L (136-145)
[2018-11-26 07:11] LABS: Hemoglobin 9.2 g/dL (12.0-16.0); Mean Corpuscular HGB CONC 31.3 g/dL (32.0-36.0); Mean Corpuscular Hemoglobin 23.3 pg (27.0-31.0); Mean Corpuscular Volume 74.5 fL (78.0-98.0); Mean Platelet Volume 9.3 fL (7.4-10.4); Platelet Count 234 thou/uL (130-400); Red Blood Cell (RBC) Count 3.93 mill/uL (4.20-5.40); White Blood Cell (WBC) Count 2.9 thou/uL (4.8-10.8)
[2018-11-26 08:00] LABS: Eosinophils 2 % (0-10); Hypochromia SLIGHT = 6-15 cells (100X) (0-5/hpf); Lymphocytes 72 % (21-51); MDiff Complete? YES; Microcytosis SLIGHT = 6-15 cells (100X) (0-5/hpf); Monocytes 6 % (0-10); Neutrophil 16 % (42-75); Platelet Morphology Comment Appears Adequate; Polychromasia SLIGHT = 2-3 cells (100X) (0-2/hpf); Reactive Lymphocytes 4 % (0-10)
[2018-11-26] MEDS ORDERED: Fat Emulsion 125 ML IVPB SCH (09:00)
[2018-11-26] MEDS: clonazePAM 1 MG TAB PO SCH ×2 (09:23→21:51)
[2018-11-26] MEDS: Ondansetron PF 4 MG/2 ML Vial IVP PRN (09:23)
[2018-11-26] MEDS: Loperamide HCl 2 MG CAP PO PRN (09:23)
[2018-11-26] MEDS: Cephalexin 250 MG CAP PO SCH (09:29)
[2018-11-26 11:15] LABS: Cardiac Risk 4.2 (Less than 4.5)
[2018-11-26] MEDS: Naproxen 500 MG TAB PO PRN (13:32)
[2018-11-26] MEDS: ADMIXTURE FEE CHEMO IVPB SCH (17:00)
[2018-11-26] MEDS: FAT EMULSION IVPB SCH (17:00)
[2018-11-26] MEDS: Mirtazapine 15 MG TAB PO SCH (21:51)
[2018-11-27] MEDS: D5W-AA 4.25% with LYTES 1,000 ML IV SCH ×4 (04:26→22:12)
--- NOTE | 2018-11-27 06:39 | PDOC.FM ---
- Subjective Subjective: Shara reports sleeping better last night as there were less people coming in. She is just now waking up. She reports eating a portion of mashed potatoes and 2 fries last night. The NSAID has significantly helped her pain. She has not had BM yet but is passing gas. - Objective Vital Signs & Weight: Vital Signs (12 hours) Temp Pulse Resp BP Pulse Ox 11/26/18 19:43 97.8 F 95 14 96/66 100 Weight Admit Weight 30.345 kg Weight 29.143 kg I&O: 11/25/18 11/26/18 11/27/18 06:59 06:59 06:59 Intake Total 271 059 9405 Balance 915 099 6672 Result Diagrams: 11/27/18 05:59 11/27/18 05:59 Phys Exam - Physical Examination Constitutional: NAD Respiratory: no wheezing, clear to auscultation bilateral Cardiovascular: RRR, no significant murmur (cachectic) Gastrointestinal: non-tender, no distention, positive bowel sounds Musculoskeletal: no edema, pulses present RLE wound dressing in place Neurological: non-focal Psychiatric: normal affect Skin: normal turgor, cap refill <2 seconds Dx/Plan (1) Severe protein-calorie malnutrition Code(s): E43 - UNSPECIFIED SEVERE PROTEIN-CALORIE MALNUTRITION Status: Acute (2) Neutropenia Code(s): D70.9 - NEUTROPENIA, UNSPECIFIED Status: Acute (3) Iron deficiency anemia due to dietary causes Code(s): D50.8 - OTHER IRON DEFICIENCY ANEMIAS Status: Acute (4) Anemia Code(s): D64.9 - ANEMIA, UNSPECIFIED Status: Acute (5) Pressure ulcer Code(s): L89.90 - PRESSURE ULCER OF UNSPECIFIED SITE, UNSPECIFIED STAGE Status : Acute (6) Rheumatoid arthritis Code(s): M06.9 - RHEUMATOID ARTHRITIS, UNSPECIFIED Status: Acute (7) Anxiety Code(s): F41.9 - ANXIETY DISORDER, UNSPECIFIED Status: Chronic (8) Cachexia Code(s): R64 - CACHEXIA Status: Chronic - Plan Plan: Severe malnutrition 2/2 disordered eating - BMI 13 - Encourage PO intake, [employer] consulted. Does not like supplement drink. Refuses NG feeds. Will discuss TPN in the coming days. - PPN and lipids started 11/25. [employer] consulted. Will closely monitor electrolytes, I/Os, daily weights. - Patient needs multidisciplinary approach to care. and would benefit from inpatient eating disorder facility, however patient not currently interested. Chronic pressure wounds, lower extremity and sacral - complicated by poor wound healing 2/2 severe malnutrition - Appearance more consistent with chronic poor wound healing rather than acute cellulitis/erysipelas. - Wound Care consulted - Antibiotics discontinued 11/26 after 4 days treatment Anxiety - Long history of severe anxiety, previously had been prescribed antidepressants including paxil and zoloft but inability to tolerate side effects - Klonopin BID - [facility] has screened, patient not currently suicidal and unable to receive inpatient services in their facilities since she cannot perform all ADLs - Patient seen by Dr. Roslyn Ureña. 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 Also concern for OCD. - Mirtazapine started 11/25, patient now refusing as it made her feel bad when she tried it Anemia - likely mixture of severe iron deficiency anemia as well as chronic disease - Hgb 6.2, transfused 1 u prbc 11/24, repeat Hgb stable Neutropenia - Neutropenic precautions - will continue to monitor Rheumatoid Arthritis - Was on home Hydroxychloroquine 200 mg PO daily, discontinued initially. No current concern for infection. Could consider restarting as pt has mentioned she feels it really helps her. Pt prefers to take only NSAIDs now. - NSAIDs prn pain - has seen fishing game warden twice in past year for bloodwork. Was to be started on humira but unable 2/2 hematologic derangements Dispo: Continue PPN and to monitor progress. Addendum - Attending - Attending Attestation Date/Time: 11/27/18 1031 I personally evaluated the patient and discussed the management with Dr. Mtz. I agree with the History, Examination, Assessment and Plan documented above with any addition or exceptions noted below. Patient overall improved. Slept well last night and now recognizing that her involvement in her care will be integral to her improvement. She continues on PPN and we will discuss TPN further as she was previously not interested. Continues to not be interested in transfer to feeding disorder facility. She is having improved PO intake and is to be congratulated on that. Continue to monitor for refeeding syndrome. Refused Remeron and will continue to discuss other options to treat her anxiety. Limiting individuals in her room due to increased anxiety associated with that.
[2018-11-27 06:40] LABS: Phosphorus 3.5 mg/dL (2.3-4.7)
[2018-11-27 06:41] LABS: ALT (SGPT) Less than 7 U/L (8-55); AST (SGOT) 9 U/L (5-34); Albumin 2.9 g/dL (3.5-5.0); Alkaline Phosphatase 42 U/L (40-150); Anion Gap 12 mmol/L (10-20); BUN (Urea Nitrogen) 11 mg/dL (7.0-18.7); Bilirubin, Total 0.6 mg/dL (0.2-1.2); Calc. Creatinine Clearance 80 mL/min (70-130); Calcium 8.2 mg/dL (7.8-10.44); Carbon Dioxide 23 mmol/L (22-29); Chloride 101 mmol/L (98-107); Estimated GFR-MDRD Greater than 90; Globulin 3.6 g/dL (2.4-3.5); Glucose 99 mg/dL (70-105); Magnesium 2.3 mg/dL (1.6-2.6); Potassium 4.2 mmol/L (3.5-5.1); Protein, Total 6.5 g/dL (6.0-8.3); Sodium 132 mmol/L (136-145)
[2018-11-27 07:58] LABS: Band 2 % (5-11); Eosinophils 1 % (0-10); Hemoglobin 8.9 g/dL (12.0-16.0); Hypochromia SLIGHT = 6-15 cells (100X) (0-5/hpf); Lymphocytes 57 % (21-51); MDiff Complete? YES; Mean Corpuscular HGB CONC 29.5 g/dL (32.0-36.0); Mean Corpuscular Hemoglobin 22.1 pg (27.0-31.0); Mean Corpuscular Volume 74.9 fL (78.0-98.0); Mean Platelet Volume 9.6 fL (7.4-10.4); Microcytosis SLIGHT = 6-15 cells (100X) (0-5/hpf); Monocytes 4 % (0-10); Neutrophil 26 % (42-75); Ovalocytes SLIGHT = 2-5 cells (100X) (0-1/hpf); Platelet Count 207 thou/uL (130-400); Platelet Morphology Comment Appears Adequate; Polychromasia SLIGHT = 2-3 cells (100X) (0-2/hpf); RBC Distribution Width 18.3 % (11.5-14.5); Reactive Lymphocytes 10 % (0-10); Red Blood Cell (RBC) Count 4.02 mill/uL (4.20-5.40); Tear Drops SLIGHT = 2-5 cells (100X) (0-1/hpf); White Blood Cell (WBC) Count 2.5 thou/uL (4.8-10.8)
[2018-11-27] MEDS: clonazePAM 1 MG TAB PO SCH ×2 (09:32→22:17)
[2018-11-27] MEDS: Naproxen 500 MG TAB PO PRN (09:36)
[2018-11-27] MEDS: Ondansetron PF 4 MG/2 ML Vial IVP PRN ×2 (09:40→22:20)
[2018-11-27] MEDS ORDERED: ADMIXTURE FEE FS SCH (11:00)
[2018-11-27] MEDS ORDERED: FAT EMULSION FS SCH (11:00)
[2018-11-27] MEDS: Simethicone Chewable 80 MG TAB PO PRN (14:26)
[2018-11-27] MEDS: FAT EMULSION IVPB SCH (17:44)
[2018-11-27] MEDS: ADMIXTURE FEE CHEMO IVPB SCH (17:44)
[2018-11-27] MEDS: Mirtazapine 15 MG TAB PO SCH (21:13)
[2018-11-28] MEDS: D5W-AA 4.25% with LYTES 1,000 ML IV SCH ×2 (05:04→18:34)
--- NOTE | 2018-11-28 06:29 | PDOC.FM ---
- Subjective Subjective: [place]ILLE. Was able to eat pancakes and whole serving of mashed potatoes. No abd pain , gassy but wants to hold off on any stool softener for now. - Objective MAR Reviewed: Yes Vital Signs & Weight: Vital Signs (12 hours) Temp Pulse Resp BP Pulse Ox 11/27/18 20:00 97.6 F 120 H 18 91/57 L 99 Weight Admit Weight 30.345 kg Weight 27.1 kg I&O: 11/26/18 11/27/18 11/28/18 06:59 06:59 06:59 Intake Total 5450 2440 2714 Output Total 1000 Balance 5450 2440 5804 Result Diagrams: 11/27/18 05:59 11/28/18 06:49 Phys Exam - Physical Examination Constitutional: NAD cachectic, thin appearing Respiratory: no wheezing, clear to auscultation bilateral Cardiovascular: RRR, no significant murmur Gastrointestinal: soft, non-tender Neurological: non-focal, moves all 4 limbs Psychiatric: normal affect Deviation from normal: anxious appearing Skin: cap refill <2 seconds Dx/Plan (1) Anemia Code(s): D64.9 - ANEMIA, UNSPECIFIED Status: Acute (2) Iron deficiency anemia due to dietary causes Code(s): D50.8 - OTHER IRON DEFICIENCY ANEMIAS Status: Acute (3) Pressure ulcer Code(s): L89.90 - PRESSURE ULCER OF UNSPECIFIED SITE, UNSPECIFIED STAGE Status : Acute (4) Rheumatoid arthritis Code(s): M06.9 - RHEUMATOID ARTHRITIS, UNSPECIFIED Status: Acute (5) Severe protein-calorie malnutrition Code(s): E43 - UNSPECIFIED SEVERE PROTEIN-CALORIE MALNUTRITION Status: Acute (6) Anxiety Code(s): F41.9 - ANXIETY DISORDER, UNSPECIFIED Status: Chronic (7) Cachexia Code(s): R64 - CACHEXIA Status: Chronic - Plan Plan: #Severe malnutrition 2/2 disordered eating - BMI 11.7 - Encourage PO intake. Does not like supplement drink. Refuses NG feeds. - PPN and lipids started 11/25. Dietary on board. Will closely monitor electrolytes, I/Os, daily weights. - Patient needs multidisciplinary approach to care. and would benefit from inpatient eating disorder facility, however patient declines. Continue with open conversation about this. #Chronic pressure wounds, lower extremity and sacral - complicated by poor wound healing 2/2 severe malnutrition - Appearance more consistent with chronic poor wound healing rather than acute cellulitis/erysipelas. - Wound Care consulted - Antibiotics discontinued 11/26 after 4 days treatment #Anxiety - Long history of severe anxiety, previously had been prescribed antidepressants including paxil and zoloft but inability to tolerate side effects - [facility] has screened, patient not currently suicidal and unable to receive inpatient services in their facilities since she cannot perform all ADLs - Patient seen by Dr. Roslyn Ureña. 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 Also concern for OCD. - Mirtazapine started 11/25, patient now refusing as it made her feel bad when she tried it- continue klonipin BID since anxiety improved with this #Anemia - likely mixture of severe iron deficiency anemia as well as chronic disease - Hgb 6.2, transfused 1 u prbc 11/24, repeat Hgb stable #Neutropenia - 2/2 to severe malnutrition - Neutropenic precautions - will continue to monitor #Rheumatoid Arthritis - Was on home Hydroxychloroquine 200 mg PO daily, discontinued initially. No current concern for infection. Could consider restarting as pt has mentioned she feels it really helps her. Pt prefers to take only NSAIDs now. - NSAIDs prn pain - has seen site promotion agent twice in past year for bloodwork. Was to be started on humira but unable 2/2 hematologic derangements Dispo: Continue PPN and to monitor for nutritional status improvement. Improving , slowly. Labs every other day. Consider may need to go home on PPN if patient refuses inpt eating disorder facility.
[2018-11-28 07:26] LABS: ALT (SGPT) Less than 7 U/L (8-55); AST (SGOT) 11 U/L (5-34); Albumin 3.2 g/dL (3.5-5.0); Alkaline Phosphatase 47 U/L (40-150); Anion Gap 12 mmol/L (10-20); BUN (Urea Nitrogen) 14 mg/dL (7.0-18.7); Bilirubin, Total 0.6 mg/dL (0.2-1.2); Calc. Creatinine Clearance 68 mL/min (70-130); Calcium 8.6 mg/dL (7.8-10.44); Carbon Dioxide 22 mmol/L (22-29); Chloride 101 mmol/L (98-107); Estimated GFR-MDRD Greater than 90; Globulin 4.2 g/dL (2.4-3.5); Glucose 89 mg/dL (70-105); Magnesium 2.4 mg/dL (1.6-2.6); Phosphorus 3.6 mg/dL (2.3-4.7); Potassium 4.3 mmol/L (3.5-5.1); Protein, Total 7.4 g/dL (6.0-8.3); Sodium 131 mmol/L (136-145)
[2018-11-28 08:08] LABS: Band 3 % (5-11); Eosinophils 5 % (0-10); Hemoglobin 9.7 g/dL (12.0-16.0); Lymphocytes 53 % (21-51); MDiff Complete? YES; Mean Corpuscular HGB CONC 30.6 g/dL (32.0-36.0); Mean Corpuscular Hemoglobin 22.8 pg (27.0-31.0); Mean Corpuscular Volume 74.6 fL (78.0-98.0); Mean Platelet Volume 9.9 fL (7.4-10.4); Monocytes 7 % (0-10); Neutrophil 32 % (42-75); Platelet Count 237 thou/uL (130-400); RBC Distribution Width 18.4 % (11.5-14.5); Red Blood Cell (RBC) Count 4.25 mill/uL (4.20-5.40); White Blood Cell (WBC) Count 2.9 thou/uL (4.8-10.8)
[2018-11-28] MEDS: clonazePAM 1 MG TAB PO SCH ×2 (08:53→22:34)
[2018-11-28] MEDS: Ondansetron PF 4 MG/2 ML Vial IVP PRN ×2 (10:58→22:34)
[2018-11-28] MEDS: Naproxen 500 MG TAB PO PRN (11:00)
--- NOTE | 2018-11-28 11:26 | PRG ---
DATE OF SERVICE: 11/28/2018 Ms. Bates is resting quietly in bed, in no distress. We are following her for numerous nutritional deficiencies including anemia, iron deficiency, and severe protein malnutrition and cachexia. We have encouraged her p.o. intake including supplement drinks, which she does not like. I really believe she would likely need psychiatric treatment if not undertaking this already for what appears to be possible anorexia nervosa. Job ID: [id number]
[2018-11-28] MEDS: Multivitamins CHEW w/Iron Tablet PO SCH (12:19)
[2018-11-28] MEDS: FAT EMULSION IVPB SCH (17:20)
[2018-11-28] MEDS: ADMIXTURE FEE CHEMO IVPB SCH (17:20)
[2018-11-28] MEDS: Mirtazapine 15 MG TAB PO SCH (20:52)
--- NOTE | 2018-11-29 07:54 | PDOC.FM ---
- Subjective Subjective: Pt with no complaints today. Able to eat from all three plates yesterday having almost a whole pancake, some chicken fried steak and couple bites of a grilled check sandwich. Has not had BM in a few days, would be open to trying a stool softener. - Objective Vital Signs & Weight: Vital Signs (12 hours) Temp Pulse Resp BP Pulse Ox 11/28/18 20:00 97.8 F 110 H 20 95/60 98 Weight Admit Weight 30.345 kg Weight 27.5 kg I&O: 11/28/18 11/29/18 11/30/18 06:59 06:59 06:59 Intake Total 2714 1910 Output Total 1000 800 Balance 1714 1110 Result Diagrams: 11/28/18 06:49 11/28/18 06:49 Phys Exam - Physical Examination Constitutional: NAD cachectic, but hydrated HEENT: sclera anicteric Respiratory: no wheezing, clear to auscultation bilateral Cardiovascular: no significant murmur tachycardic Musculoskeletal: no edema rheumatoid nodules on hand Neurological: non-focal, moves all 4 limbs Deviation from normal: anxious affect Deviation from normal: wounds wrapped Dx/Plan (1) Anemia Code(s): D64.9 - ANEMIA, UNSPECIFIED Status: Acute (2) Iron deficiency anemia due to dietary causes Code(s): D50.8 - OTHER IRON DEFICIENCY ANEMIAS Status: Acute (3) Pressure ulcer Code(s): L89.90 - PRESSURE ULCER OF UNSPECIFIED SITE, UNSPECIFIED STAGE Status : Acute (4) Rheumatoid arthritis Code(s): M06.9 - RHEUMATOID ARTHRITIS, UNSPECIFIED Status: Acute (5) Severe protein-calorie malnutrition Code(s): E43 - UNSPECIFIED SEVERE PROTEIN-CALORIE MALNUTRITION Status: Acute (6) Anxiety Code(s): F41.9 - ANXIETY DISORDER, UNSPECIFIED Status: Chronic (7) Cachexia Code(s): R64 - CACHEXIA Status: Chronic - Plan Plan: #Severe malnutrition 2/2 disordered eating - BMI 11.7 - Encourage PO intake. Does not like supplement drink. Refuses NG feeds. - PPN and lipids started 11/25. Dietary on board. Will closely monitor electrolytes, I/Os, daily weights. - Patient needs multidisciplinary approach to care. and would benefit from inpatient eating disorder facility, however patient declines. Continue with open conversation about this. #Chronic pressure wounds, lower extremity and sacral - complicated by poor wound healing 2/2 severe malnutrition - Appearance more consistent with chronic poor wound healing rather than acute cellulitis/erysipelas. - Wound Care consulted - Antibiotics discontinued 11/26 after 4 days treatment #Tachycardia -Patient tachycardic this hospitalization -Could be secondary to anemia vs. anxiety. In room she states she gets nervous everytime vitals are taken. Likely source, patient denies chest pain, cardiac issues in past. Continue observing since EKG would bring more anxiety at this time. Can consider reopening conversation if rate exceeds into 110s #Anxiety - Long history of severe anxiety, previously had been prescribed antidepressants including paxil and zoloft but inability to tolerate side effects - [facility] has screened, patient not currently suicidal and unable to receive inpatient services in their facilities since she cannot perform all ADLs - Patient seen by Dr. Roslyn Ureña. 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 Also concern for OCD. - Mirtazapine started 11/25, patient now refusing as it made her feel bad when she tried it- continue klonipin BID since anxiety improved with this #Anemia - likely mixture of severe iron deficiency anemia as well as chronic disease - Hgb 6.2, transfused 1 u prbc 11/24, repeat Hgb stable #Neutropenia - 2/2 to severe malnutrition - Neutropenic precautions - will continue to monitor #Rheumatoid Arthritis - Was on home Hydroxychloroquine 200 mg PO daily, discontinued initially. No current concern for infection. Could consider restarting as pt has mentioned she feels it really helps her. Pt prefers to take only NSAIDs now. - NSAIDs prn pain - has seen cancer genetic counselor twice in past year for bloodwork. Was to be started on humira but unable 2/2 hematologic derangements Dispo: Continue PPN and to monitor for nutritional status improvement. Improving , slowly. Labs every other day. Stool softener today.
--- NOTE | 2018-11-29 11:20 | PRG ---
DATE OF SERVICE: 11/29/2018 Ms. Bates seems to be expanding her food variety. She continues on TPN. No significantly new clinical changes. Job ID: [id number]
[2018-11-29] MEDS: Ondansetron PF 4 MG/2 ML Vial IVP PRN ×2 (11:22→22:11)
[2018-11-29] MEDS: clonazePAM 1 MG TAB PO SCH ×2 (11:22→22:11)
[2018-11-29] MEDS: Senokot S 8.6-50 MG TAB PO SCH (11:23)
[2018-11-29] MEDS: Multivitamins CHEW w/Iron Tablet PO SCH (11:23)
[2018-11-29] MEDS: Naproxen 500 MG TAB PO PRN (12:19)
[2018-11-29] MEDS: D5W-AA 4.25% with LYTES 1,000 ML IV SCH (13:01)
[2018-11-29] MEDS: FAT EMULSION IVPB SCH (15:52)
[2018-11-29] MEDS: ADMIXTURE FEE CHEMO IVPB SCH (15:52)
[2018-11-29] MEDS: Mirtazapine 15 MG TAB PO SCH (21:01)
--- NOTE | 2018-11-30 06:55 | PDOC.FM ---
- Subjective Subjective: Shara says she feels groggy this morning as she has not slept well the past two nights. She reports increasing PO intake. - Objective Vital Signs & Weight: Vital Signs (12 hours) Temp Pulse Resp BP Pulse Ox 11/29/18 20:00 98.5 F 112 H 16 98/63 99 Weight Admit Weight 30.345 kg Weight 28.6 kg I&O: 11/28/18 11/29/18 11/30/18 06:59 06:59 06:59 Intake Total 2714 1910 2186 Output Total 1000 800 700 Balance 1714 1110 1486 Result Diagrams: 11/28/18 06:49 11/28/18 06:49 Phys Exam - Physical Examination Constitutional: NAD Respiratory: no wheezing, clear to auscultation bilateral Cardiovascular: RRR, no significant murmur Gastrointestinal: non-tender, no distention (hypoactive bowel sounds) Musculoskeletal: no edema Neurological: non-focal Psychiatric: normal affect Skin: normal turgor Dx/Plan (1) Severe protein-calorie malnutrition Code(s): E43 - UNSPECIFIED SEVERE PROTEIN-CALORIE MALNUTRITION Status: Acute (2) Neutropenia Code(s): D70.9 - NEUTROPENIA, UNSPECIFIED Status: Acute (3) Iron deficiency anemia due to dietary causes Code(s): D50.8 - OTHER IRON DEFICIENCY ANEMIAS Status: Acute (4) Anemia Code(s): D64.9 - ANEMIA, UNSPECIFIED Status: Acute (5) Pressure ulcer Code(s): L89.90 - PRESSURE ULCER OF UNSPECIFIED SITE, UNSPECIFIED STAGE Status : Acute (6) Rheumatoid arthritis Code(s): M06.9 - RHEUMATOID ARTHRITIS, UNSPECIFIED Status: Acute (7) Anxiety Code(s): F41.9 - ANXIETY DISORDER, UNSPECIFIED Status: Chronic (8) Cachexia Code(s): R64 - CACHEXIA Status: Chronic - Plan Plan: #Severe malnutrition 2/2 disordered eating - BMI 11.7 - Encourage PO intake. Does not like supplement drink. Refuses NG feeds. - PPN and lipids started 11/25. Dietary on board. Will closely monitor electrolytes, I/Os, daily weights. - Patient needs multidisciplinary approach to care. and would benefit from inpatient eating disorder facility, however patient declines. Continue with open conversation about this. #Chronic pressure wounds, lower extremity and sacral - complicated by poor wound healing 2/2 severe malnutrition - Appearance more consistent with chronic poor wound healing rather than acute cellulitis/erysipelas. - Wound Care consulted - Antibiotics discontinued 11/26 after 4 days treatment #Tachycardia -Patient tachycardic intermittently, always associated with anxiety. Will continue to monitor #Anxiety - Long history of severe anxiety, previously had been prescribed antidepressants including paxil and zoloft but inability to tolerate side effects - [facility] has screened, patient not currently suicidal and unable to receive inpatient services in their facilities since she cannot perform all ADLs - Patient seen by Dr. Roslyn Ureña. 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 Also concern for OCD. - Mirtazapine tried 11/25, patient now refusing as it made her feel bad when she tried it- continue klonipin BID since anxiety improved with this #Anemia - likely mixture of severe iron deficiency anemia as well as chronic disease - Hgb 6.2, transfused 1 u prbc 11/24, repeat Hgb stable #Neutropenia - Neutropenic precautions - will continue to monitor #Rheumatoid Arthritis - Was on home Hydroxychloroquine 200 mg PO daily, discontinued initially. No current concern for infection. Could consider restarting as pt has mentioned she feels it really helps her. Pt prefers to take only NSAIDs now. - NSAIDs prn pain - has seen car groomer twice in past year for bloodwork. Was to be started on humira but unable 2/2 hematologic derangements Dispo: Continue PPN and to monitor for nutritional status improvement. Improving , slowly. Labs every other day. Stool softener. Addendum - Attending - Attending Attestation Date/Time: 11/30/18 5405 I personally evaluated the patient and discussed the management with Dr. Mtz I agree with the History, Examination, Assessment and Plan documented above with any addition or exceptions noted below - Patient without complaints. Afebrile VSS. A/P: 1) Protein calorie malnutrition- weight increased 1 kg. Continue PPN. Goal of BMI=15. Will check labs today- CBC, CMP, Mg, Po4, and prealbumin. 2) Anxiety- continue current meds.
[2018-11-30] MEDS: D5W-AA 4.25% with LYTES 1,000 ML IV SCH (07:43)
[2018-11-30] MEDS: Senokot S 8.6-50 MG TAB PO SCH (09:33)
[2018-11-30] MEDS: Multivitamins CHEW w/Iron Tablet PO SCH (09:33)
[2018-11-30] MEDS: clonazePAM 1 MG TAB PO SCH ×2 (09:33→22:20)
[2018-11-30] MEDS: Ondansetron PF 4 MG/2 ML Vial IVP PRN ×2 (09:35→22:19)
[2018-11-30] MEDS: Naproxen 500 MG TAB PO PRN (10:35)
[2018-11-30 12:18] LABS: ALT (SGPT) Less than 7 U/L (8-55); AST (SGOT) 22 U/L (5-34); Alkaline Phosphatase 50 U/L (40-150); Anion Gap 11 mmol/L (10-20); BUN (Urea Nitrogen) 14 mg/dL (7.0-18.7); Bilirubin, Total 0.4 mg/dL (0.2-1.2); Calc. Creatinine Clearance 76 mL/min (70-130); Calcium 8.5 mg/dL (7.8-10.44); Carbon Dioxide 22 mmol/L (22-29); Chloride 102 mmol/L (98-107); Estimated GFR-MDRD Greater than 90; Glucose 104 mg/dL (70-105); Magnesium 2.1 mg/dL (1.6-2.6); Sodium 131 mmol/L (136-145)
[2018-11-30 12:38] LABS: Band 4 % (5-11); Hemoglobin 8.6 g/dL (12.0-16.0); Hypochromia SLIGHT = 6-15 cells (100X) (0-5/hpf); Lymphocytes 54 % (21-51); MDiff Complete? YES; Mean Corpuscular HGB CONC 30.5 g/dL (32.0-36.0); Mean Corpuscular Hemoglobin 23.4 pg (27.0-31.0); Mean Corpuscular Volume 76.8 fL (78.0-98.0); Mean Platelet Volume 10.1 fL (7.4-10.4); Microcytosis SLIGHT = 6-15 cells (100X) (0-5/hpf); Monocytes 10 % (0-10); Neutrophil 32 % (42-75); Platelet Count 194 thou/uL (130-400); Platelet Morphology Comment Appears Adequate; Polychromasia SLIGHT = 2-3 cells (100X) (0-2/hpf); Red Blood Cell (RBC) Count 3.65 mill/uL (4.20-5.40); White Blood Cell (WBC) Count 2.3 thou/uL (4.8-10.8)
[2018-11-30] MEDS: ADMIXTURE FEE CHEMO IVPB SCH (16:40)
[2018-11-30] MEDS: FAT EMULSION IVPB SCH (16:40)
--- NOTE | 2018-12-01 06:22 | PDOC.FM ---
- Subjective Subjective: Shara was sitting up in bed. She reports her wound dressings changes are very painful. Discussed multiple aspects of her care, her desire to not be in the hospital. We talked about the recommendation and necessity to remain in a facility for monitoring and nutrition replacement. Talked about benefits of a specialized eating disorder facility. Patient again says how she would be unable to handle that due to her anxiety. She is understanding that there is not a quick fix and that discharge this week will not be possible. Discussed recommendation to be BMI 15-16 before outpatient management appropriate. I talked about the risks and complications of being such low body weight including the real risk of . - Objective Vital Signs & Weight: Vital Signs (12 hours) Temp Pulse Resp BP Pulse Ox 11/30/18 20:00 97.8 F 128 H 16 110/76 98 Weight Admit Weight 30.345 kg Weight 28.6 kg I&O: 11/29/18 11/30/18 12/01/18 06:59 06:59 06:59 Intake Total 1910 2186 2209 Output Total 490 833 7551 Balance 1110 1486 909 Result Diagrams: 11/30/18 11:19 11/30/18 11:19 Phys Exam - Physical Examination Constitutional: NAD HEENT: PERRLA, oral pharynx no lesions Respiratory: no wheezing, clear to auscultation bilateral Cardiovascular: RRR, no significant murmur Gastrointestinal: non-tender, no distention Musculoskeletal: no edema Neurological: moves all 4 limbs Skin: no rash (wound bandages in place) Dx/Plan (1) Severe protein-calorie malnutrition Code(s): E43 - UNSPECIFIED SEVERE PROTEIN-CALORIE MALNUTRITION Status: Acute (2) Neutropenia Code(s): D70.9 - NEUTROPENIA, UNSPECIFIED Status: Acute (3) Iron deficiency anemia due to dietary causes Code(s): D50.8 - OTHER IRON DEFICIENCY ANEMIAS Status: Acute (4) Anemia Code(s): D64.9 - ANEMIA, UNSPECIFIED Status: Acute (5) Pressure ulcer Code(s): L89.90 - PRESSURE ULCER OF UNSPECIFIED SITE, UNSPECIFIED STAGE Status : Acute (6) Rheumatoid arthritis Code(s): M06.9 - RHEUMATOID ARTHRITIS, UNSPECIFIED Status: Acute (7) Anxiety Code(s): F41.9 - ANXIETY DISORDER, UNSPECIFIED Status: Chronic (8) Cachexia Code(s): R64 - CACHEXIA Status: Chronic (9) Vitamin D deficiency Code(s): E55.9 - VITAMIN D DEFICIENCY, UNSPECIFIED Status: Acute - Plan Plan: #Severe malnutrition 2/2 disordered eating - BMI 11.7->12.3. Weight this morning increased to 66lbs. Prealbumin trending up 6->9. - Pt has made great effort to gradually increase PO intake - PPN and lipids started 11/25. Dietary on board. Will closely monitor electrolytes, I/Os, daily weights. - Patient needs multidisciplinary approach to care. and would benefit from inpatient eating disorder facility, however patient declines d/t anxiety. Continue open conversation about this. #Chronic pressure wounds, lower extremity and sacral - complicated by poor wound healing 2/2 severe malnutrition - Wound Care consulted. Will add pain prn for dressing changes - Antibiotics discontinued 11/26 after 4 days treatment #Tachycardia -Patient tachycardic intermittently, always associated with anxiety. Will continue to monitor #Anxiety - Long history of severe anxiety, previously had been prescribed antidepressants including paxil and zoloft but inability to tolerate side effects - [facility] has screened, patient not currently suicidal and unable to receive inpatient services in their facilities since she cannot perform all ADLs - Patient seen by Dr. Roslyn Ureña. 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 Also concern for OCD. - Mirtazapine tried 11/25, patient now refusing as it made her feel bad when she tried it- continue klonipin BID since anxiety improved with this #Anemia - likely mixture of severe iron deficiency anemia as well as chronic disease - Hgb 6.2, transfused 1 u prbc 11/24, repeat Hgb stable #Leukopenia - Neutropenic precautions, pt ANC is 828 on most recent check - will continue to monitor #Vitamin D Deficiency - Severely, placed on Vitamin D supp available on formulary #Hypoalbuminemia - continue to monitor, expect to see gradual improvement with improving nutritional status #Rheumatoid Arthritis - Was on home Hydroxychloroquine 200 mg PO daily, discontinued initially. No current concern for infection. Could consider restarting as pt has mentioned she feels it really helps her. Pt prefers to take only NSAIDs now. - NSAIDs prn pain - has seen photograph finisher twice in past year for bloodwork. Was to be started on humira but unable 2/2 hematologic derangements Dispo: Continue PPN and to monitor for nutritional status improvement. Will need to further discuss transition to TPN as PPN only to be given for 1-2 weeks. Improving, slowly. Labs every other day. Pt not appropriate for safe outpatient management until BMI of 15-16. Addendum - Attending - Attending Attestation Date/Time: 12/02/18 0902 I personally evaluated the patient and discussed the management with Dr. Mtz on 12/01/2018 I agree with the History, Examination, Assessment and Plan documented above with any addition or exceptions noted below - Patient without complaints. Has been eating more. Afebrile VSS. A/P: 1) Protein calorie malnutrition- continue to monitor weight; Prealbumin slowly improving. 2) Anxiety- continue current meds.
[2018-12-01] MEDS: D5W-AA 4.25% with LYTES 1,000 ML IV SCH (10:07)
[2018-12-01] MEDS: clonazePAM 1 MG TAB PO SCH ×3 (10:15→22:26)
[2018-12-01] MEDS: Multivitamins CHEW w/Iron Tablet PO SCH ×2 (10:15→12:11)
[2018-12-01] MEDS: Senokot S 8.6-50 MG TAB PO SCH ×2 (10:16→12:11)
[2018-12-01] MEDS: Ondansetron PF 4 MG/2 ML Vial IVP PRN ×2 (10:19→22:26)
[2018-12-01] MEDS: Naproxen 500 MG TAB PO PRN (16:51)
[2018-12-01] MEDS: ADMIXTURE FEE CHEMO IVPB SCH (16:51)
[2018-12-01] MEDS: FAT EMULSION IVPB SCH (16:51)
[2018-12-02] MEDS: D5W-AA 4.25% with LYTES 1,000 ML IV SCH ×3 (04:55→22:54)
[2018-12-02] MEDS ORDERED: Lorazepam 1 MG TAB PO PRN (06:32)
--- NOTE | 2018-12-02 06:40 | PDOC.FM ---
- Subjective Subjective: Shara says she feels very anxious about PICC procedure this morning. She also has questions about swelling in her legs that comes when they are hanging off side of bed, resolves with elevation. She denies SOB or chest pain. Continues to work to increase her PO intake. - Objective Vital Signs & Weight: Vital Signs (12 hours) Temp Pulse Resp BP BP Pulse Ox 12/02/18 00:00 93/61 12/01/18 20:00 97.9 F 118 H 21 H 89/52 L 100 Weight Admit Weight 30.345 kg Weight 28.6 kg I&O: 11/30/18 12/01/18 12/02/18 06:59 06:59 06:59 Intake Total 2186 2209 2361 Output Total 700 1300 500 Balance 7228 099 2218 Result Diagrams: 11/30/18 11:19 11/30/18 11:19 Phys Exam - Physical Examination Constitutional: NAD HEENT: moist MMs Respiratory: clear to auscultation bilateral Cardiovascular: no significant murmur regular rate, tachycardia Gastrointestinal: non-tender, no distention (thin) 1+ pitting edema BLE. RLE pressure wounds unchanged, not open. Neurological: non-focal Psychiatric: normal affect Skin: cap refill <2 seconds Dx/Plan (1) Severe protein-calorie malnutrition Code(s): E43 - UNSPECIFIED SEVERE PROTEIN-CALORIE MALNUTRITION Status: Acute (2) Neutropenia Code(s): D70.9 - NEUTROPENIA, UNSPECIFIED Status: Acute (3) Iron deficiency anemia due to dietary causes Code(s): D50.8 - OTHER IRON DEFICIENCY ANEMIAS Status: Acute (4) Anemia Code(s): D64.9 - ANEMIA, UNSPECIFIED Status: Acute (5) Pressure ulcer Code(s): L89.90 - PRESSURE ULCER OF UNSPECIFIED SITE, UNSPECIFIED STAGE Status : Acute (6) Rheumatoid arthritis Code(s): M06.9 - RHEUMATOID ARTHRITIS, UNSPECIFIED Status: Acute (7) Anxiety Code(s): F41.9 - ANXIETY DISORDER, UNSPECIFIED Status: Chronic (8) Cachexia Code(s): R64 - CACHEXIA Status: Chronic (9) Vitamin D deficiency Code(s): E55.9 - VITAMIN D DEFICIENCY, UNSPECIFIED Status: Acute - Plan Plan: #Severe malnutrition 2/2 disordered eating - BMI 11.7->12.3. Prealbumin trending up 6->9. - Pt has made great effort to gradually increase PO intake - PPN/lipids received 11/25-11/01. Plan to get PICC today and start TPN. - Will closely monitor electrolytes, I/Os, daily weights. - Patient needs multidisciplinary approach to care. and would benefit from inpatient eating disorder facility, however patient declines d/t anxiety. Continue open conversation about this. #Chronic pressure wounds, lower extremity and sacral - complicated by poor wound healing 2/2 severe malnutrition - Wound Care consulted. Will add pain prn for dressing changes. Discussed protecting these areas, elevation as needed to decrease swelling - Antibiotics discontinued 11/26 after 4 days treatment #Tachycardia -Patient tachycardic intermittently, always associated with anxiety and pt otherwise asymptomatic - will get EKG today #Anxiety - Long history of severe anxiety, previously had been prescribed antidepressants including paxil and zoloft but inability to tolerate side effects - [facility] has screened, patient not currently suicidal and unable to receive inpatient services in their facilities since she cannot perform all ADLs - Patient seen by Dr. Roslyn Ureña. 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 Also concern for OCD. - Mirtazapine tried 11/25 but made patient feel bad, could consider trying again in future with food and perhaps will ahve better tolerance. Continue klonipin BID since anxiety improved with this #Anemia - likely mixture of severe iron deficiency anemia as well as chronic disease - Hgb 6.2, transfused 1 u prbc 11/24, repeat Hgb stable #Leukopenia - Neutropenic precautions, pt ANC is 828 on most recent check - will continue to monitor #Vitamin D Deficiency - Severe, placed on Vitamin D supp available on formulary though not at ideal dosing #Hypoalbuminemia - continue to monitor, expect to see gradual improvement with improving nutritional status #Rheumatoid Arthritis - Was on home Hydroxychloroquine 200 mg PO daily, discontinued initially. No current concern for infection. Could consider restarting as pt has mentioned she feels it really helps her. Pt prefers to take only NSAIDs now. - NSAIDs prn pain - has seen geospatial information technologist twice in past year for bloodwork. Was to be started on humira but unable 2/2 hematologic derangements - Dr. Taylor aware patient is hospitalized and recommended outpt follow up Dispo: Plan for PICC and transition to TPN w/lipids today. Will closely monitor electrolytes in am. Pt not appropriate for safe outpatient management until BMI of 15-16. Addendum - Attending - Attending Attestation Date/Time: 12/02/18 1110 I personally evaluated the patient and discussed the management with Dr. Mtz I agree with the History, Examination, Assessment and Plan documented above with any addition or exceptions noted below - Patient without complaints. Anxious regarding PICC placement. Afebrile VSS. A/P: 1) Protein calorie malnutrition- slowly improving. Patient now agreeable to PICC line and starting TPN; plan for placement today. 2) Anxiety - continue current meds.
[2018-12-02] MEDS ORDERED: Morphine 2 MG/ML SYRINGE SLOW IVP PRN (06:48)
[2018-12-02] MEDS ORDERED: Lorazepam 2 MG/ML VIAL SLOW IVP PRN (08:30)
[2018-12-02] MEDS: Senokot S 8.6-50 MG TAB PO SCH (08:53)
[2018-12-02] MEDS: Multivitamins CHEW w/Iron Tablet PO SCH (08:53)
[2018-12-02] MEDS: Ondansetron PF 4 MG/2 ML Vial IVP PRN ×2 (08:53→22:37)
[2018-12-02] MEDS: clonazePAM 1 MG TAB PO SCH ×2 (08:53→22:36)
--- NOTE | 2018-12-02 15:31 | EKG ---
Test Reason : Blood Pressure : / mmHG Vent. Rate : 118 BPM Atrial Rate : 118 BPM P-R Int : 122 ms QRS Dur : 068 ms QT Int : 322 ms P-R-T Axes : 063 071 028 degrees QTc Int : 451 ms Sinus tachycardia Otherwise normal ECG No previous ECGs available Confirmed by DELL DINH, DR. Deshpande ([id number]) on 12/02/2018 3:31:36 PM Referred By: CHAI Confirmed By:DR. Jeramy SHARPE MD
[2018-12-02] MEDS: Naproxen 500 MG TAB PO PRN (16:05)
[2018-12-02] MEDS: FAT EMULSION IVPB SCH (16:06)
[2018-12-02] MEDS: ADMIXTURE FEE CHEMO IVPB SCH (16:06)
[2018-12-02 16:14] LABS: ALT (SGPT) 9 U/L (8-55); AST (SGOT) 28 U/L (5-34); Albumin 2.9 g/dL (3.5-5.0); Alkaline Phosphatase 50 U/L (40-150); Anion Gap 9 mmol/L (10-20); BUN (Urea Nitrogen) 19 mg/dL (7.0-18.7); Bilirubin, Total 0.3 mg/dL (0.2-1.2); Calc. Creatinine Clearance 81 mL/min (70-130); Calcium 8.1 mg/dL (7.8-10.44); Carbon Dioxide 24 mmol/L (22-29); Chloride 102 mmol/L (98-107); Estimated GFR-MDRD Greater than 90; Globulin 3.6 g/dL (2.4-3.5); Glucose 84 mg/dL (70-105); Magnesium 2.2 mg/dL (1.6-2.6); Phosphorus 3.4 mg/dL (2.3-4.7); Potassium 4.1 mmol/L (3.5-5.1); Protein, Total 6.5 g/dL (6.0-8.3); Sodium 131 mmol/L (136-145)
[2018-12-02 16:20] LABS: Anisocytosis SLIGHT = 6-15 cells (100X) (0-5/hpf); Band 1 % (5-11); Hemoglobin 7.4 g/dL (12.0-16.0); Hypochromia SLIGHT = 6-15 cells (100X) (0-5/hpf); Lymphocytes 70 % (21-51); MDiff Complete? YES; Mean Corpuscular HGB CONC 31.1 g/dL (32.0-36.0); Mean Corpuscular Hemoglobin 23.4 pg (27.0-31.0); Mean Corpuscular Volume 75.1 fL (78.0-98.0); Monocytes 2 % (0-10); Neutrophil 27 % (42-75); Platelet Count 181 thou/uL (130-400); Platelet Morphology Comment Appears Adequate; RBC Distribution Width 18.4 % (11.5-14.5); Red Blood Cell (RBC) Count 3.15 mill/uL (4.20-5.40); White Blood Cell (WBC) Count 2.7 thou/uL (4.8-10.8)
--- NOTE | 2018-12-03 06:52 | PDOC.FM ---
- Subjective Subjective: Shara is anxiously awaiting PICC placement this morning and is tearful. She says her anxiety is making it hard to be in the hospital. She notes food was dry last night so she was only able to eat mashed potatoes for supper. Pain/ aches have been managed with NSAID. She denies chest pain or difficulty breathing. - Objective Vital Signs & Weight: Vital Signs (12 hours) Temp Pulse Resp BP Pulse Ox 12/02/18 20:00 97 12/02/18 19:33 97.3 F L 111 H 16 101/65 97 Weight Admit Weight 30.345 kg Weight 31.298 kg I&O: 12/01/18 12/02/18 12/03/18 06:59 06:59 06:59 Intake Total 2209 2361 2715 Output Total 1300 500 600 Balance 909 1861 2115 Result Diagrams: 12/04/18 06:20 12/04/18 06:20 Phys Exam - Physical Examination tearful, anxious Respiratory: no wheezing, clear to auscultation bilateral Cardiovascular: RRR, no significant murmur Gastrointestinal: non-tender (thin), no distention 1+ pitting edema BLE, wound dressing in place Neurological: non-focal Skin: cap refill <2 seconds Dx/Plan (1) Severe protein-calorie malnutrition Code(s): E43 - UNSPECIFIED SEVERE PROTEIN-CALORIE MALNUTRITION Status: Acute (2) Neutropenia Code(s): D70.9 - NEUTROPENIA, UNSPECIFIED Status: Acute (3) Iron deficiency anemia due to dietary causes Code(s): D50.8 - OTHER IRON DEFICIENCY ANEMIAS Status: Acute (4) Anemia Code(s): D64.9 - ANEMIA, UNSPECIFIED Status: Acute (5) Pressure ulcer Code(s): L89.90 - PRESSURE ULCER OF UNSPECIFIED SITE, UNSPECIFIED STAGE Status : Acute (6) Rheumatoid arthritis Code(s): M06.9 - RHEUMATOID ARTHRITIS, UNSPECIFIED Status: Acute (7) Anxiety Code(s): F41.9 - ANXIETY DISORDER, UNSPECIFIED Status: Chronic (8) Cachexia Code(s): R64 - CACHEXIA Status: Chronic (9) Vitamin D deficiency Code(s): E55.9 - VITAMIN D DEFICIENCY, UNSPECIFIED Status: Acute - Plan Plan: #Severe malnutrition 2/2 disordered eating - BMI 11.7->12.3->13.5. Prealbumin trending up 6->9. - Pt gradually increase PO intake - PPN/lipids received 11/25-11/02. Plan to get PICC today and start TPN. - Will closely monitor electrolytes, I/Os, daily weights. - Patient needs multidisciplinary approach to care. and would benefit from inpatient eating disorder facility, however patient declines d/t anxiety. Continue open conversation about this. #Chronic pressure wounds, lower extremity and sacral - complicated by poor wound healing 2/2 severe malnutrition - Wound Care consulted. Will add pain prn for dressing changes. Discussed protecting these areas, elevation as needed to decrease swelling - Antibiotics discontinued 11/26 after 4 days treatment #Tachycardia -Patient tachycardic intermittently, always associated with anxiety and pt otherwise asymptomatic -EKG showed NSR. If pt starts exhibited symptoms of decompensation or heart failure will get echo. #Anxiety - Long history of severe anxiety, previously had been prescribed antidepressants including paxil and zoloft but inability to tolerate side effects - [facility] has screened, patient not currently suicidal and unable to receive inpatient services in their facilities since she cannot perform all ADLs - Patient seen by Dr. Roslyn Ureña. 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 Also concern for OCD. - Mirtazapine tried 11/25 but made patient feel bad, could consider trying again in future with food and perhaps will have better tolerance. Continue klonipin BID. #Anemia - likely mixture of severe iron deficiency anemia as well as chronic disease - Hgb 6.2, transfused 1 u prbc 11/24, repeat Hgb has started to downtrend. Will consider iron transfusion. #Leukopenia - Neutropenic precautions, pt ANC is >800 on most recent check - will continue to monitor #Vitamin D Deficiency - Severe, placed on Vitamin D supp available on formulary though not at ideal dosing #Hypoalbuminemia - continue to monitor, expect to see gradual improvement with improving nutritional status #Rheumatoid Arthritis - Was on home Hydroxychloroquine 200 mg PO daily, discontinued initially. No current concern for infection. Could consider restarting as pt has mentioned she feels it really helps her. Pt prefers to take only NSAIDs now. - NSAIDs prn pain - has seen auto polisher twice in past year for bloodwork. Was to be started on humira but unable 2/2 hematologic derangements - Dr. Taylor aware patient is hospitalized and recommended outpt follow up Dispo: Plan for PICC and transition to TPN w/lipids today. Will closely monitor electrolytes in am. Pt not appropriate for safe outpatient management until BMI of ~15-16. Addendum - Attending - Attending Attestation Date/Time: 12/04/18 0904 I personally evaluated the patient and discussed the management with Dr. Mtz on 12/03. I agree with the History, Examination, Assessment and Plan documented above with any addition or exceptions noted below. Patient gaining weight. Remains tachycardic, which can be a hallmark for refeeding, but has had no electrolyte changes. She may only be getting vitals checked whenever she is getting up, which would not be resting, and this may be clouding the picture. Will confirm. TPN is reasonable and if we are able to get her to a goal weight, hopefully the improved BMI will lead to increased self-insight into her illness. She has little understanding that her preoccupation with gastrointestinal symptoms is precluding effective treatment of her anxiety, whatever its associated diagnoses , her RA, her OCD, and her avoidant/restrictive ED. I would continue to encourage psychological treatment to the family, with strong consideration again given for SSRI and possibly atypical antipsychotic.
[2018-12-03] MEDS: clonazePAM 1 MG TAB PO SCH ×2 (08:30→21:07)
[2018-12-03] MEDS: Ondansetron PF 4 MG/2 ML Vial IVP PRN ×2 (08:43→22:38)
[2018-12-03] MEDS ORDERED: Lorazepam 2 MG/ML VIAL SLOW IVP SCH (08:45)
--- NOTE | 2018-12-03 11:56 | SPC ---
Ultrasound and Fluoroscopic guided left upper extremity PICC placement HISTORY: Weight loss and anorexia. Patient needs peripheral intravenous catheter for parenteral nutri tion. FINDINGS: Informed consent obtained prior to the procedure. An appropriate access site was determined with ultrasound guidance. The area was then meticulously pr epped and draped in usual sterile fashion. Skin overlying the left basilic vein anesthetized with 1% buffered lidocaine. Utilizing direct sonogr aphic guidance, vascular access is obtained via the left basilic vein, and an 0.018in guidewire was advanced to the distal SVC. Intravascular length is calculated at 30.5 cm, and the PICC is cut accord ingly. Needle is removed and replaced with a peel-away sheath. The PICC was advanced over the wire. Wire and peel-away sheath were removed. The tip of the catheter overlies the distal SVC. The catheter was accessed and aspirated/flushed easily. Exposure data: 0.1 minutes of fluoroscopic time 87 mGy square centimeter FINDINGS: Technically successful placement of a 30.5 centimeter dual-lumen 5 [place] left upper extremity PICC l ine. IMPRESSION: Successful ultrasound guided placement of a left upper extremity PICC.
[2018-12-03] MEDS: D5W-AA 4.25% with LYTES 1,000 ML IV SCH (13:00)
[2018-12-03] MEDS: Naproxen 500 MG TAB PO PRN ×2 (13:26→22:38)
[2018-12-03] MEDS: Multivitamins CHEW w/Iron Tablet PO SCH (13:26)
[2018-12-03] MEDS: Senokot S 8.6-50 MG TAB PO SCH (13:27)
[2018-12-03] MEDS ORDERED: Sodium Acetate 2 mEq/ml 40 MEQ, Sodium Chloride 30 MEQ, Potassium Chloride 20 MEQ, Pota... IV SCH (22:00)
[2018-12-04 06:41] LABS: Hemoglobin 6.9 g/dL (12.0-16.0); Mean Corpuscular HGB CONC 30.4 g/dL (32.0-36.0); Mean Corpuscular Volume 75.7 fL (78.0-98.0); Mean Platelet Volume 9.6 fL (7.4-10.4); Platelet Count 160 thou/uL (130-400); RBC Distribution Width 18.2 % (11.5-14.5); Red Blood Cell (RBC) Count 3.01 mill/uL (4.20-5.40); White Blood Cell (WBC) Count 2.7 thou/uL (4.8-10.8)
--- NOTE | 2018-12-04 06:47 | PDOC.FM ---
- Subjective Subjective: Shara says she does not feel well this morning. She denies dysuria, cough, congestion, SOB. While in room vital signs are taken, pt has temp of 100.9. Weight is 71lb. She feels shaky and anxious. - Objective Vital Signs & Weight: Vital Signs (12 hours) Temp Pulse Resp BP Pulse Ox 12/03/18 20:00 100 12/03/18 19:20 97.6 F 115 H 16 94/62 100 Weight Admit Weight 30.345 kg Weight 31.298 kg I&O: 12/02/18 12/03/18 12/04/18 06:59 06:59 06:59 Intake Total 2361 3845 855 Output Total 500 600 Balance 1861 5330 855 Result Diagrams: 12/04/18 06:20 12/04/18 06:20 Phys Exam - Physical Examination feels warm to touch, anxious HEENT: moist MMs Respiratory: no wheezing, clear to auscultation bilateral Cardiovascular: RRR (tachycardia), no significant murmur Gastrointestinal: non-tender, positive bowel sounds (thin) 2+ pitting edema Neurological: moves all 4 limbs Skin: cap refill <2 seconds Dx/Plan (1) Severe protein-calorie malnutrition Code(s): E43 - UNSPECIFIED SEVERE PROTEIN-CALORIE MALNUTRITION Status: Acute (2) Neutropenia Code(s): D70.9 - NEUTROPENIA, UNSPECIFIED Status: Acute (3) Iron deficiency anemia due to dietary causes Code(s): D50.8 - OTHER IRON DEFICIENCY ANEMIAS Status: Acute (4) Anemia Code(s): D64.9 - ANEMIA, UNSPECIFIED Status: Acute (5) Pressure ulcer Code(s): L89.90 - PRESSURE ULCER OF UNSPECIFIED SITE, UNSPECIFIED STAGE Status : Acute (6) Rheumatoid arthritis Code(s): M06.9 - RHEUMATOID ARTHRITIS, UNSPECIFIED Status: Acute (7) Anxiety Code(s): F41.9 - ANXIETY DISORDER, UNSPECIFIED Status: Chronic (8) Cachexia Code(s): R64 - CACHEXIA Status: Chronic (9) Vitamin D deficiency Code(s): E55.9 - VITAMIN D DEFICIENCY, UNSPECIFIED Status: Acute - Plan Plan: # Fever with unknown source (12/04) - in setting of moderate, bordering severe neutropenia. ANC today 540. - no obvious source of infection but will do workup for neutropenic fever including UA, Ucx, Bcx, CXR, lactic, procal. Will also check ESR in regards to RA. Will get viral resp panel and and start empiric therapy with vanc and zosyn (12/04) #Severe malnutrition 2/2 disordered eating - BMI 11.7->12.3->13.5. Prealbumin trending up 6->9. - Pt gradually increase PO intake - PPN/lipids received 11/25-11/02. PICC placed 12/03 and TPN started. - Will closely monitor electrolytes, I/Os, daily weights. - Patient needs multidisciplinary approach to care. and would benefit from inpatient eating disorder facility, however patient declines d/t anxiety. Continue open conversation about this. #Chronic pressure wounds, lower extremity and sacral - complicated by poor wound healing 2/2 severe malnutrition - Wound Care consulted - Antibiotics discontinued 11/26 after 4 days treatment #Tachycardia -Patient tachycardic intermittently, always associated with anxiety and pt otherwise asymptomatic -EKG showed NSR. If pt starts exhibited symptoms of decompensation or heart failure will get echo. #Anxiety - Long history of severe anxiety, previously had been prescribed antidepressants including paxil and zoloft but inability to tolerate side effects - [facility] has screened, patient not currently suicidal and unable to receive inpatient services in their facilities since she cannot perform all ADLs - Patient seen by Dr. Roslyn Ureña. 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 Also concern for OCD. - Mirtazapine tried 11/25 but made patient feel bad, could consider trying again in future with food and perhaps will have better tolerance. Continue klonipin BID. #Anemia - likely mixture of severe iron deficiency anemia as well as chronic disease - Hgb 6.2, transfused 1 u prbc 11/24. Hgb 12/04 downtrended to 6.9, will transfuse 1 u prbc #Leukopenia - Neutropenic precautions - will continue to monitor #Vitamin D Deficiency - Severe, placed on Vitamin D supp available on formulary though not at ideal dosing #Hypoalbuminemia - continue to monitor, expect to see gradual improvement with improving nutritional status #Rheumatoid Arthritis - Was on home Hydroxychloroquine 200 mg PO daily, discontinued initially. No current concern for infection. Could consider restarting as pt has mentioned she feels it really helps her. Pt prefers to take only NSAIDs now. - NSAIDs prn pain - has seen casing crew twice in past year for bloodwork. Was to be started on humira but unable 2/2 hematologic derangements - Dr. Taylor aware patient is hospitalized and recommended outpt follow up Dispo: Workup for fever as above. Will continue to monitor and await these results. Transfuse 1 unit today. Addendum - Attending - Attending Attestation Date/Time: 12/04/18 1102 I personally evaluated the patient and discussed the management with Dr. Mtz I agree with the History, Examination, Assessment and Plan documented above with any addition or exceptions noted below - Patient not feeling well- shaky and anxious. T100.9 VSS A/P: 1) Fever- may be secondary to stress from PICC line yesterday with flare of her RA versus infectious etiology. Will obtain blood, urine cultures. Check U/A, procalcitonin, ESR, lactate, and CXR. Start empiric antibiotics. 2) Anemia- will transfuse 1u pRBCs today. 3) Malnutrition- now on TPN; weight 71 pounds now with BMI=13.9. Improving slowly.
[2018-12-04 06:51] LABS: Band 2 % (5-11); Hypochromia SLIGHT = 6-15 cells (100X) (0-5/hpf); Lymphocytes 80 % (21-51); MDiff Complete? YES; Microcytosis SLIGHT = 6-15 cells (100X) (0-5/hpf); Neutrophil 18 % (42-75); Platelet Morphology Comment Appears Adequate
[2018-12-04 06:56] LABS: ALT (SGPT) 15 U/L (8-55); AST (SGOT) 30 U/L (5-34); Albumin 2.6 g/dL (3.5-5.0); Alkaline Phosphatase 49 U/L (40-150); Anion Gap 10 mmol/L (10-20); BUN (Urea Nitrogen) 15 mg/dL (7.0-18.7); Bilirubin, Total 0.2 mg/dL (0.2-1.2); Calc. Creatinine Clearance 98 mL/min (70-130); Calcium 7.9 mg/dL (7.8-10.44); Carbon Dioxide 25 mmol/L (22-29); Chloride 102 mmol/L (98-107); Estimated GFR-MDRD Greater than 90; Globulin 3.3 g/dL (2.4-3.5); Glucose 94 mg/dL (70-105); Potassium 4.4 mmol/L (3.5-5.1); Protein, Total 5.9 g/dL (6.0-8.3); Sodium 133 mmol/L (136-145)
[2018-12-04] MEDS ORDERED: Heparin 1,000 UNITS/ML VIAL ONE (09:08)
[2018-12-04] MEDS: clonazePAM 1 MG TAB PO SCH ×2 (09:17→22:24)
[2018-12-04] MEDS: Ondansetron PF 4 MG/2 ML Vial IVP PRN ×2 (09:22→22:39)
[2018-12-04] MEDS: Naproxen 500 MG TAB PO PRN ×2 (09:33→12:24)
[2018-12-04] MEDS: Multivitamins CHEW w/Iron Tablet PO SCH (09:33)
[2018-12-04 09:38] LABS: Magnesium 2.2 mg/dL (1.6-2.6); Phosphorus 3.2 mg/dL (2.3-4.7)
[2018-12-04] MEDS: Senokot S 8.6-50 MG TAB PO SCH (09:51)
[2018-12-04] MEDS ORDERED: Acetaminophen 325 MG TAB PO PRN (10:44)
--- NOTE | 2018-12-04 11:26 | RAD ---
FRONTAL RADIOGRAPH CHEST: DATE: 12/04/2018, 11/23/2018. HISTORY: Fever and neutropenia. FINDINGS: Left-sided vascular catheter terminates over the region of the cavoatrial junction. No pneumothorax or lobar consolidation. Mild increased linear density in both lung bases suggests a vascular promine nce. When compared to 11/23/2018 exam, there has been no significant interval change. IMPRESSION: No focal consolidation or alveolar edema. POS: [facility]
[2018-12-04 11:40] LABS: Lactic Acid 1.1 mmol/L (0.5-2.2)
[2018-12-04] MEDS: Piperacillin/Tazobactam 3.375 GM in Sodium Chloride 0.9% 100 ML IVPB SCH ×2 (12:06→18:12)
[2018-12-04] MEDS: Vancomycin HCl 750 MG in Sodium Chloride 0.9% 250 ML 250 ML IVPB SCH ×3 (13:45→20:29)
[2018-12-04 18:58] LABS: Bacteria/HPF None Seen HPF (None Seen); Bilirubin Negative (Negative); Blood, Urine 1+ (Negative); Clarity Clear (Clear); Glucose, Urine (Dipstick) Normal (Negative); Leukocyte Negative Leu/uL (Negative); Mucous/LPF Rare LPF (<2+); Nitrite Negative (Negative); Protein, Urine (Dipstick) Negative (Neg-Trace); Squamous Epithelial 0-3 HPF (0-3); Urobilinogen Normal mg/dL (Less than 2); WBC/HPF 0-3 HPF (0-3)
[2018-12-04] MEDS: SODIUM CHLORIDE IV SCH (22:23)
[2018-12-04] MEDS: SODIUM ACETATE IV SCH (22:23)
[2018-12-04] MEDS: [UNRECOGNIZED DRUG - OTHER] IV SCH (22:23)
[2018-12-04] MEDS: POTASSIUM CHLORIDE IV SCH (22:23)
[2018-12-05] MEDS: Piperacillin/Tazobactam 3.375 GM in Sodium Chloride 0.9% 100 ML IVPB SCH ×5 (00:47→23:47)
[2018-12-05] MEDS: Vancomycin HCl 750 MG in Sodium Chloride 0.9% 250 ML 250 ML IVPB SCH ×3 (05:07→20:44)
--- NOTE | 2018-12-05 07:23 | PDOC.FM ---
- Subjective Subjective: Shara says she is feeling okay this morning. She was very tired from everything that happened yesterday. She was able to eat some for lunch and dinner. Denies fever. Said that wound care went well yesterday as they came up with a better positioning technique. - Objective Vital Signs & Weight: Vital Signs (12 hours) Temp Pulse Resp BP Pulse Ox 12/04/18 20:00 97.8 F 111 H 16 91/60 99 Weight Admit Weight 30.345 kg Weight 32.205 kg Most Recent Monitor Data Heart Rate from ECG 114 NIBP 84/52 Respiration from ECG 18 I&O: 12/04/18 12/05/18 12/06/18 06:59 06:59 06:59 Intake Total 2268 1598 Output Total 1200 Balance 2268 398 Result Diagrams: 12/04/18 06:20 12/04/18 06:20 Phys Exam - Physical Examination Constitutional: NAD HEENT: moist MMs Respiratory: no wheezing, clear to auscultation bilateral Cardiovascular: RRR (tachycardia), no significant murmur Gastrointestinal: soft (thing), no distention 2+ pitting edema BLE Neurological: non-focal Psychiatric: normal affect Deviation from normal: wound dressing in place RLE Dx/Plan (1) Severe protein-calorie malnutrition Code(s): E43 - UNSPECIFIED SEVERE PROTEIN-CALORIE MALNUTRITION Status: Acute (2) Neutropenia Code(s): D70.9 - NEUTROPENIA, UNSPECIFIED Status: Acute (3) Iron deficiency anemia due to dietary causes Code(s): D50.8 - OTHER IRON DEFICIENCY ANEMIAS Status: Acute (4) Anemia Code(s): D64.9 - ANEMIA, UNSPECIFIED Status: Acute (5) Pressure ulcer Code(s): L89.90 - PRESSURE ULCER OF UNSPECIFIED SITE, UNSPECIFIED STAGE Status : Acute (6) Rheumatoid arthritis Code(s): M06.9 - RHEUMATOID ARTHRITIS, UNSPECIFIED Status: Acute (7) Anxiety Code(s): F41.9 - ANXIETY DISORDER, UNSPECIFIED Status: Chronic (8) Cachexia Code(s): R64 - CACHEXIA Status: Chronic (9) Vitamin D deficiency Code(s): E55.9 - VITAMIN D DEFICIENCY, UNSPECIFIED Status: Acute - Plan Plan: 28 yo F with PMH of RA and anxiety presents to the ED for pressure wounds and was admitted with severe malnutrition. # Fever with unknown source (12/04) - in setting of moderate, bordering severe neutropenia. ANC 540. - afebrile overnight - no obvious source of infection at this time. CXR and UA negative. Lactic and procal negative. Continue empiric therapy with vanc and zosyn (12/04) until cultures are negative. Pending resp viral panel. #Severe malnutrition 2/2 disordered eating - BMI 11.7->12.3->13.5->13.9. Prealbumin trending up 6->9. - Pt gradually increase PO intake - PPN/lipids received 11/25-11/02. PICC placed 12/03 and TPN started. - Will closely monitor electrolytes, I/Os, daily weights. - Patient needs multidisciplinary approach to care. and would benefit from inpatient eating disorder facility, however patient declines d/t anxiety. Continue open conversation about this. #Chronic pressure wounds, lower extremity and sacral - complicated by poor wound healing 2/2 severe malnutrition - Wound Care consulted - Antibiotics discontinued 11/26 after 4 days treatment #Tachycardia -Patient tachycardic intermittently, always associated with anxiety and pt otherwise asymptomatic -EKG showed NSR. If pt starts exhibited symptoms of decompensation will get echo. #Anxiety - Long history of severe anxiety, previously had been prescribed antidepressants including paxil and zoloft but inability to tolerate side effects - [facility] has screened, patient not currently suicidal and unable to receive inpatient services in their facilities since she cannot perform all ADLs - Patient seen by Dr. Roslyn Ureña. 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 Also concern for OCD. - Mirtazapine tried 11/25 but made patient feel bad, could consider trying again in future with food and perhaps will have better tolerance. Pt refuses at this time. Continue klonipin BID. #Anemia - likely mixture of severe iron deficiency anemia as well as chronic disease - Hgb 6.2, transfused 1 u prbc 11/24. Hgb downtrended to 6.9, transfused 1 u prbc 12/04. Will continue to monitor. #Leukopenia - Neutropenic precautions - will continue to monitor #Vitamin D Deficiency - Severe, placed on Vitamin D supp available on formulary though not at ideal dosing #Hypoalbuminemia - continue to monitor, expect to see gradual improvement with improving nutritional status #Rheumatoid Arthritis - Was on home Hydroxychloroquine 200 mg PO daily, discontinued initially. No current concern for infection. Could consider restarting as pt has mentioned she feels it really helps her. Pt prefers to take only NSAIDs now. - NSAIDs prn pain - has seen wire mill rover twice in past year for bloodwork. Was to be started on humira but unable 2/2 hematologic derangements - Dr. Taylor aware patient is hospitalized and recommended outpt follow up Dispo: AM labs pending. Continue TPN. Continue broad spectrum IV abx until cultures negative. Addendum - Attending - Attending Attestation Date/Time: 12/05/18 3480 I personally evaluated the patient and discussed the management with Dr. Mtz. I agree with the History, Examination, Assessment and Plan documented above with any addition or exceptions noted below. Patient overall stable. Infection workup overall negative and suspect her single episode of fever was due to inflammation. However, as neutropenic, we are continuing broad spectrum abx until negative cultures. PCT reassuring. She continues on TPN and wound care. She is making progress with her PO intake and her weight is improving. Continue to monitor for refeeding syndrome. Continue wound care. Work to improve anxiety as best she will allow us.
[2018-12-05] MEDS: clonazePAM 1 MG TAB PO SCH ×2 (09:42→20:45)
[2018-12-05] MEDS: Ondansetron PF 4 MG/2 ML Vial IVP PRN ×2 (09:43→22:12)
[2018-12-05] MEDS: Multivitamins CHEW w/Iron Tablet PO SCH (09:46)
[2018-12-05] MEDS: Naproxen 500 MG TAB PO PRN (10:01)
[2018-12-05] MEDS: Senokot S 8.6-50 MG TAB PO SCH (10:02)
[2018-12-05 10:48] LABS: INR-International Normal Ratio 1.2; Mean Corpuscular HGB CONC 31.5 g/dL (32.0-36.0); Mean Corpuscular Volume 79.5 fL (78.0-98.0); Mean Platelet Volume 10.1 fL (7.4-10.4); PTT 36.3 SEC (22.9-36.1); Platelet Count 139 thou/uL (130-400); Prothrombin Time 14.7 SEC (12.0-14.7); RBC Distribution Width 18.8 % (11.5-14.5); Red Blood Cell (RBC) Count 3.19 mill/uL (4.20-5.40); White Blood Cell (WBC) Count 2.9 thou/uL (4.8-10.8)
[2018-12-05 10:51] LABS: ALT (SGPT) 41 U/L (8-55); AST (SGOT) 80 U/L (5-34); Albumin 2.5 g/dL (3.5-5.0); Alkaline Phosphatase 53 U/L (40-150); Anion Gap 9 mmol/L (10-20); BUN (Urea Nitrogen) 14 mg/dL (7.0-18.7); Bilirubin, Total 0.4 mg/dL (0.2-1.2); Calc. Creatinine Clearance 98 mL/min (70-130); Calcium 7.8 mg/dL (7.8-10.44); Carbon Dioxide 24 mmol/L (22-29); Cardiac Risk 4.7 (Less than 4.5); Chloride 106 mmol/L (98-107); Cholesterol 85 mg/dl (< 200 Desired); Estimated GFR-MDRD Greater than 90; Globulin 3.3 g/dL (2.4-3.5); Glucose 95 mg/dL (70-105); HDL Cholesterol 18 mg/dL (>60 Neg Risk); LDL Cholesterol, Calculated 53 mg/dL; Magnesium 2.2 mg/dL (1.6-2.6); Phosphorus 3.1 mg/dL (2.3-4.7); Potassium 4.1 mmol/L (3.5-5.1); Protein, Total 5.8 g/dL (6.0-8.3); Sodium 135 mmol/L (136-145); Triglycerides 69 mg/dL (Less than 150)
[2018-12-05 11:34] LABS: Eosinophils 6 % (0-10); Hypochromia MODERATE=16-30 cells (100X) (0-5/hpf); Lymphocytes 47 % (21-51); MDiff Complete? YES; Monocytes 10 % (0-10); Neutrophil 37 % (42-75); Platelet Morphology Comment Appears Adequate
[2018-12-05 12:27] LABS: Vancomycin, Trough 12.5 ug/mL
[2018-12-05] MEDS: SODIUM ACETATE IV SCH (22:15)
[2018-12-05] MEDS: POTASSIUM CHLORIDE IV SCH (22:15)
[2018-12-05] MEDS: [UNRECOGNIZED DRUG - OTHER] IV SCH (22:15)
[2018-12-05] MEDS: SODIUM CHLORIDE IV SCH (22:15)
[2018-12-06] MEDS: Loperamide HCl 2 MG CAP PO PRN ×2 (00:51→08:40)
[2018-12-06] MEDS: Vancomycin HCl 750 MG in Sodium Chloride 0.9% 250 ML 250 ML IVPB SCH (05:48)
[2018-12-06] MEDS: Piperacillin/Tazobactam 3.375 GM in Sodium Chloride 0.9% 100 ML IVPB SCH (06:00)
[2018-12-06 06:46] LABS: Eosinophils 2 % (0-10); Hemoglobin 7.5 g/dL (12.0-16.0); Hypochromia SLIGHT = 6-15 cells (100X) (0-5/hpf); Lymphocytes 60 % (21-51); MDiff Complete? YES; Mean Corpuscular Hemoglobin 24.7 pg (27.0-31.0); Mean Corpuscular Volume 79.8 fL (78.0-98.0); Mean Platelet Volume 9.8 fL (7.4-10.4); Monocytes 6 % (0-10); Neutrophil 32 % (42-75); Platelet Count 137 thou/uL (130-400); Platelet Morphology Comment Appears Adequate; Red Blood Cell (RBC) Count 3.02 mill/uL (4.20-5.40); White Blood Cell (WBC) Count 2.8 thou/uL (4.8-10.8)
--- NOTE | 2018-12-06 07:19 | PDOC.FM ---
- Subjective Subjective: Patient resting well in bed. Has no new complaints today. Awaiting daily weight as it was deferred to later this morning by mother. - Objective Vital Signs & Weight: Vital Signs (12 hours) Temp Pulse Resp BP Pulse Ox 12/05/18 20:39 98.2 F 112 H 16 91/59 L 100 Weight Admit Weight 30.345 kg Weight 32.659 kg Most Recent Monitor Data Heart Rate from ECG 114 NIBP 84/52 Respiration from ECG 18 I&O: 12/05/18 12/06/18 12/07/18 06:59 06:59 06:59 Intake Total 2398 2770 Output Total 1200 Balance 1198 2770 Result Diagrams: 12/06/18 05:54 12/05/18 10:00 Phys Exam - Physical Examination Constitutional: NAD Respiratory: clear to auscultation bilateral Cardiovascular: RRR, no significant murmur Gastrointestinal: no distention 2+ pitting edema BLE Neurological: non-focal Psychiatric: normal affect Skin: cap refill <2 seconds Dx/Plan (1) Severe protein-calorie malnutrition Code(s): E43 - UNSPECIFIED SEVERE PROTEIN-CALORIE MALNUTRITION Status: Acute (2) Neutropenia Code(s): D70.9 - NEUTROPENIA, UNSPECIFIED Status: Acute (3) Iron deficiency anemia due to dietary causes Code(s): D50.8 - OTHER IRON DEFICIENCY ANEMIAS Status: Acute (4) Anemia Code(s): D64.9 - ANEMIA, UNSPECIFIED Status: Acute (5) Pressure ulcer Code(s): L89.90 - PRESSURE ULCER OF UNSPECIFIED SITE, UNSPECIFIED STAGE Status : Acute (6) Rheumatoid arthritis Code(s): M06.9 - RHEUMATOID ARTHRITIS, UNSPECIFIED Status: Acute (7) Anxiety Code(s): F41.9 - ANXIETY DISORDER, UNSPECIFIED Status: Chronic (8) Cachexia Code(s): R64 - CACHEXIA Status: Chronic (9) Vitamin D deficiency Code(s): E55.9 - VITAMIN D DEFICIENCY, UNSPECIFIED Status: Acute - Plan Plan: 28 yo F with PMH of RA and anxiety presents to the ED for pressure wounds and was admitted with severe malnutrition. # Fever with unknown source (12/04) - in setting of moderate, bordering severe neutropenia. ANC 540. - afebrile overnight - no obvious source of infection at this time. CXR and UA negative. Lactic and procal negative. Resp viral panel neg. Continue empiric therapy with vanc and zosyn (12/04) until cultures are negative. #Severe malnutrition 2/2 disordered eating - BMI 11.7->12.3->13.5->13.9->14.1. Prealbumin steady at 9. - Pt gradually increase PO intake - PPN/lipids received 11/25-11/02. PICC placed 12/03 and TPN started. - Will closely monitor electrolytes, I/Os, daily weights. - Patient needs multidisciplinary approach to care. and would benefit from inpatient eating disorder facility, however patient declines d/t anxiety. Continue open conversation about this. #Elevated liver enzyme - ALT bumped to 80, will continue to monitor #Chronic pressure wounds, lower extremity and sacral - complicated by poor wound healing 2/2 severe malnutrition - Wound Care consulted - Antibiotics discontinued 11/26 after 4 days treatment #Tachycardia -Patient tachycardic intermittently, always associated with anxiety and pt otherwise asymptomatic -EKG NSR. If pt starts exhibited symptoms of decompensation will get echo. #Anxiety - Long history of severe anxiety, previously had been prescribed antidepressants including paxil and zoloft but inability to tolerate side effects - [facility] has screened, patient not currently suicidal and unable to receive inpatient services in their facilities since she cannot perform all ADLs - Patient seen by Dr. Roslyn Ureña. 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 Also concern for OCD. - Mirtazapine tried 11/25 but made patient feel bad, could consider trying again in future with food and perhaps will have better tolerance. Pt refuses at this time along with any other med apart from benzo. Continue klonipin BID. #Anemia - likely mixture of severe iron deficiency anemia as well as chronic disease - Hgb 6.2, transfused 1 u prbc 11/24. Hgb downtrended to 6.9, transfused 1 u prbc 12/04. Will continue to monitor. #Neutropenia - Neutropenic precautions - will continue to monitor #Vitamin D Deficiency - Severe, placed on Vitamin D supp available on formulary though not at ideal dosing #Hypoalbuminemia - continue to monitor, expect to see gradual improvement with improving nutritional status #Rheumatoid Arthritis - Was on home Hydroxychloroquine 200 mg PO daily, discontinued initially. No current concern for infection. Could consider restarting as pt has mentioned she feels it really helps her. Pt prefers to take only NSAIDs now. - NSAIDs prn pain - has seen job analysis manager twice in past year for bloodwork. Was to be started on humira but unable 2/2 hematologic derangements - Dr. Taylor aware patient is hospitalized and recommended outpt follow up Dispo: AM labs pending. Continue TPN. Plan to d/c IV abx today when cultures result. Addendum - Attending - Attending Attestation Date/Time: 12/06/18 8755 I personally evaluated the patient and discussed the management with Dr. Mtz. I agree with the History, Examination, Assessment and Plan documented above with any addition or exceptions noted below. Patient overall stable. No recurrent fevers and blood work reassuring. Anticipate d/c abx today once culture results are 48 hours out. She is currently on Vanc and Zosyn. Denies complaints. She continues to tolerate the TPN well and labs are stable. Her weight continues to increase. No major changes to treatment plan today.
[2018-12-06] MEDS: Naproxen 500 MG TAB PO PRN (08:40)
[2018-12-06] MEDS: clonazePAM 1 MG TAB PO SCH ×2 (08:40→22:01)
[2018-12-06] MEDS: Multivitamins CHEW w/Iron Tablet PO SCH (08:41)
[2018-12-06] MEDS: Ondansetron PF 4 MG/2 ML Vial IVP PRN ×2 (08:41→22:01)
[2018-12-06] MEDS: Senokot S 8.6-50 MG TAB PO SCH (08:49)
[2018-12-06 11:40] LABS: INR-International Normal Ratio 1.1; PTT 35.9 SEC (22.9-36.1); Prothrombin Time 14.5 SEC (12.0-14.7)
[2018-12-06 12:42] LABS: ALT (SGPT) 40 U/L (8-55); AST (SGOT) 53 U/L (5-34); Albumin 2.5 g/dL (3.5-5.0); Alkaline Phosphatase 53 U/L (40-150); Anion Gap 11 mmol/L (10-20); BUN (Urea Nitrogen) 14 mg/dL (7.0-18.7); Bilirubin, Total 0.3 mg/dL (0.2-1.2); Calc. Creatinine Clearance 91 mL/min (70-130); Carbon Dioxide 23 mmol/L (22-29); Cardiac Risk 4.8 (Less than 4.5); Chloride 108 mmol/L (98-107); Cholesterol 87 mg/dl (< 200 Desired); Estimated GFR-MDRD Greater than 90; Globulin 3.4 g/dL (2.4-3.5); Glucose 83 mg/dL (70-105); HDL Cholesterol 18 mg/dL (>60 Neg Risk); LDL Cholesterol, Calculated 54 mg/dL; Magnesium 2.2 mg/dL (1.6-2.6); Phosphorus 3.8 mg/dL (2.3-4.7); Potassium 4.4 mmol/L (3.5-5.1); Protein, Total 5.9 g/dL (6.0-8.3); Sodium 138 mmol/L (136-145); Triglycerides 74 mg/dL (Less than 150)
[2018-12-06] MEDS: POTASSIUM CHLORIDE IV SCH (22:02)
[2018-12-06] MEDS: SODIUM ACETATE IV SCH (22:02)
[2018-12-06] MEDS: Simethicone Chewable 80 MG TAB PO PRN (22:02)
[2018-12-06] MEDS: [UNRECOGNIZED DRUG - OTHER] IV SCH (22:02)
[2018-12-06] MEDS: SODIUM CHLORIDE IV SCH (22:02)
[2018-12-07] MEDS ORDERED: Loperamide HCl 2 MG CAP PO SCH ×2 (02:15→09:00)
--- NOTE | 2018-12-07 05:33 | PDOC.FM ---
- Subjective Subjective: Patient resting in bed this morning. Complains of loose watery stools x 3 overnight & x2 yesterday afternoon. Continues to be tachycardic on exam but repeat EKGs have been normal. Due for wound care dressing changes today. LE edema has improved since CRISTI wraps placed yesterday but still feels that she is swollen in arms and from waist down. Mother in room states patient looks swollen to her compared to baseline. - Objective MAR Reviewed: Yes Vital Signs & Weight: Vital Signs (12 hours) Temp Pulse Resp BP Pulse Ox 12/06/18 20:07 97.5 F L 93 18 101/65 100 Weight Admit Weight 30.345 kg Weight 32.659 kg Most Recent Monitor Data Heart Rate from ECG 114 NIBP 84/52 Respiration from ECG 18 I&O: 12/05/18 12/06/18 12/07/18 06:59 06:59 06:59 Intake Total 2398 2770 1468 Output Total 1200 Balance 1198 2770 1468 Result Diagrams: 12/06/18 05:54 12/07/18 08:48 Phys Exam - Physical Examination Constitutional: NAD Shaking/trembling on exam HEENT: moist MMs Neck: no JVD Respiratory: no wheezing, clear to auscultation bilateral Cardiovascular: RRR, no significant murmur tachycardic, 110s Gastrointestinal: soft, non-tender, positive bowel sounds 1+ edema in lower extremities, questionable mild edema in upper arms Neurological: normal sensation, moves all 4 limbs Psychiatric: A&O x 3 Deviation from normal: appears anxious Skin: no rash, normal turgor Dx/Plan (1) Anemia Code(s): D64.9 - ANEMIA, UNSPECIFIED Status: Acute Qualifiers: Anemia type: unspecified type Qualified Code(s): D64.9 - Anemia, unspecified (2) Iron deficiency anemia due to dietary causes Code(s): D50.8 - OTHER IRON DEFICIENCY ANEMIAS Status: Acute (3) Neutropenia Code(s): D70.9 - NEUTROPENIA, UNSPECIFIED Status: Acute Qualifiers: Neutropenia type: unspecified Qualified Code(s): D70.9 - Neutropenia, unspecified (4) Pressure ulcer Code(s): L89.90 - PRESSURE ULCER OF UNSPECIFIED SITE, UNSPECIFIED STAGE Status : Acute Qualifiers: Pressure injury location: sacral region Pressure injury stage: unspecified pressure injury stage Qualified Code(s): L89.159 - Pressure ulcer of sacral region, unspecified stage (5) Rheumatoid arthritis Code(s): M06.9 - RHEUMATOID ARTHRITIS, UNSPECIFIED Status: Acute Qualifiers: Rheumatoid arthritis location: unspecified site Rheumatoid factor presence : unspecified presence Qualified Code(s): M06.9 - Rheumatoid arthritis, unspecified (6) Severe protein-calorie malnutrition Code(s): E43 - UNSPECIFIED SEVERE PROTEIN-CALORIE MALNUTRITION Status: Acute (7) Vitamin D deficiency Code(s): E55.9 - VITAMIN D DEFICIENCY, UNSPECIFIED Status: Acute (8) Anxiety Code(s): F41.9 - ANXIETY DISORDER, UNSPECIFIED Status: Chronic (9) Cachexia Code(s): R64 - CACHEXIA Status: Chronic - Plan Plan: 28 yo F with PMH of RA and anxiety presents to the ED for pressure wounds and was admitted with severe malnutrition. 1. Severe malnutrition 2/2 disordered eating - BMI 11.7->12.3->13.5->13.9->14.1 -> AM weight pending - Prealbumin steady at 9. - Pt gradually increase PO intake - PPN/lipids received 11/25-11/02. PICC placed 12/03 and TPN started. - Will closely monitor electrolytes, I/Os, daily weights. - Patient needs multidisciplinary approach to care. and would benefit from inpatient eating disorder facility, however patient declines d/t anxiety. Continue open conversation about this. -AM labs will need to be re-drawn due to contamination by TPN 2. Fever with unknown source (12/04) - in setting of moderate, bordering severe neutropenia. ANC 540. - continues to be afebrile (12/07) - no obvious source of infection at this time. CXR and UA negative. Lactic and procal negative. Resp viral panel neg. - Vancomycin and Zosyn started 12/04, d/c'd on 12/06. Cultures negative. 3. Elevated liver enzyme - AST bumped to 80 (12/05), down to 53 on 12/06. AM labs pending, will continue to monitor 4. Chronic pressure wounds, lower extremity and sacral - complicated by poor wound healing 2/2 severe malnutrition - Wound Care consulted, dressing changes every 3 days (due today) - Antibiotics discontinued 11/26 after 4 days treatment 5. Tachycardia -Patient tachycardic intermittently, always associated with anxiety and pt otherwise asymptomatic -EKG NSR. If pt starts exhibited symptoms of decompensation will get echo. 6. Anxiety - Long history of severe anxiety, previously had been prescribed antidepressants including paxil and zoloft but inability to tolerate side effects - [facility] has screened, patient not currently suicidal and unable to receive inpatient services in their facilities since she cannot perform all ADLs - Patient seen by Dr. Roslyn Ureña. 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 Also concern for OCD. - Mirtazapine tried 11/25 but made patient feel bad, could consider trying again in future with food and perhaps will have better tolerance. Pt refuses at this time along with any other med apart from benzo. Continue klonipin BID. 7. Anemia - likely mixture of severe iron deficiency anemia as well as chronic disease - Hgb 6.2, transfused 1 u prbc 11/24. Hgb downtrended to 6.9, transfused 1 u prbc 12/04 - Will continue to monitor AM CBC 8. Neutropenia - Neutropenic precautions, gloves & mask in room - will continue to monitor 9. Vitamin D Deficiency - Severe, placed on Vitamin D supp available on formulary though not at ideal dosing 10. Hypoalbuminemia - continue to monitor, expect to see gradual improvement with improving nutritional status 11. Rheumatoid Arthritis - Was on home Hydroxychloroquine 200 mg PO daily, discontinued initially. No current concern for infection. Could consider restarting as pt has mentioned she feels it really helps her. Pt prefers to take only NSAIDs now. - NSAIDs prn pain - has seen toaster operator twice in past year for bloodwork. Was to be started on humira but unable 2/2 hematologic derangements - Dr. Taylor aware patient is hospitalized and recommended outpt follow up 12. NEW Diarrhea -Will obtain C. Difficile stool study today -may be due to multiple antibiotics give from 12/04 to 12/06 -Given 1 dose Loperamide daily 13. LE Edema -CRISTI wraps placed yesterday, improved with less swelling noted in LE this AM -likely due to current nutritional state Diet: TPN via PICC line VTE: Code Status: FULL Dispo: Overall stable. AM labs pending. Continue TPN via Nutrition recs. Goal BMI 15-16 before safe to medically discharge. Addendum - Attending - Attending Attestation Date/Time: 12/07/18 0584 I personally evaluated the patient and discussed the management with Dr. Renee. I agree with the History, Examination, Assessment and Plan documented above with any addition or exceptions noted below. Patient overall stable today. She is having some edema that is due to low protein state and the amount of volume she is getting with TPN. I encouraged ambulation and muscle contraction today. She is now having diarrhea, which she chronically does, but since she had recent abx therapy will check Cdiff screen. Her labs are abnormal today but I believe those were drawn improperly and will recheck. TPN dosing dependent on those results and we are coordinating with Dietary today. Continue to promote issue of inpatient treatment facility but family very resistant. She is gaining weight well and actually anticipate that she will be stable for discharge in the coming days, though she will revert back to her chronic conditions unless she and the family agree to further outpatient treatment.
[2018-12-07] MEDS: Multivitamins CHEW w/Iron Tablet PO SCH (08:35)
[2018-12-07] MEDS: clonazePAM 1 MG TAB PO SCH ×2 (08:35→21:48)
[2018-12-07] MEDS: Senokot S 8.6-50 MG TAB PO SCH (08:35)
[2018-12-07] MEDS: Ondansetron PF 4 MG/2 ML Vial IVP PRN ×2 (08:41→21:54)
[2018-12-07] MEDS: Naproxen 500 MG TAB PO PRN (09:14)
[2018-12-07 09:21] LABS: INR-International Normal Ratio 1.1; PTT 36.8 SEC (22.9-36.1); Prothrombin Time 13.9 SEC (12.0-14.7)
[2018-12-07 09:58] LABS: Bilirubin, Total 0.3 mg/dL (0.2-1.2)
[2018-12-07 12:52] LABS: Calc. Creatinine Clearance 86 mL/min (70-130)
[2018-12-07 13:01] LABS: Anion Gap 9 mmol/L (10-20); BUN (Urea Nitrogen) 14 mg/dL (7.0-18.7); Carbon Dioxide 26 mmol/L (22-29); Chloride 102 mmol/L (98-107); Estimated GFR-MDRD Greater than 90; Potassium 4.5 mmol/L (3.5-5.1); Sodium 132 mmol/L (136-145)
[2018-12-07 13:02] LABS: Albumin 2.7 g/dL (3.5-5.0); Calcium 8.2 mg/dL (7.8-10.44); Globulin 3.5 g/dL (2.4-3.5); Glucose 101 mg/dL (70-105); Protein, Total 6.2 g/dL (6.0-8.3)
[2018-12-07 13:03] LABS: ALT (SGPT) 30 U/L (8-55); AST (SGOT) 32 U/L (5-34); Alkaline Phosphatase 55 U/L (40-150); Cholesterol 94 mg/dl (< 200 Desired); HDL Cholesterol 20 mg/dL (>60 Neg Risk); LDL Cholesterol, Calculated 60 mg/dL; Magnesium 2.3 mg/dL (1.6-2.6); Phosphorus 4.9 mg/dL (2.3-4.7); Triglycerides 72 mg/dL (Less than 150)
[2018-12-07 13:04] LABS: Cardiac Risk 4.7 (Less than 4.5)
[2018-12-07] MEDS: CALCIUM GLUCONATE IV SCH (23:01)
[2018-12-07] MEDS: SODIUM CHLORIDE IV SCH (23:01)
[2018-12-07] MEDS: [UNRECOGNIZED DRUG - OTHER] IV SCH (23:01)
[2018-12-07] MEDS: SODIUM ACETATE IV SCH (23:01)
--- NOTE | 2018-12-08 06:01 | PDOC.FM ---
- Subjective Subjective: Patient is seen this morning resting comfortably. She generally is more well- appearing today compared to yesterday. Yesterday patient & her mother voiced concerns that her swelling had spread from her legs into her waist and arms. It was explained to patient that her swelling is in part due to her nutritional status. She is reminded how well she has been improving with weight gain while on TPN. Patient also concerned about ongoing loose watery stools that started on 12/06. Patient believes BMs are occurring more frequently. States she normally takes 1 tab OTC Imodium daily when she is at home. This morning patient states she had 2 loose watery BMs yesterday. Stools were of normal color and denies blood or mucus in stool. Patient also states she thinks her swelling has gone down in her arms and legs. Patient's TPN was adjusted from 1.5 to 1.2L yesterday. Discussion was had with patient regarding her Hgb 6.8 this AM and need for another blood transfusion. All questions were answered to satisfaction and patient was amenable to receiving the transfusion today. It was also suggested that patient receive an iron transfusion. Patient would like more information about side effects but will consider receiving iron transfusion either today or tomorrow. - Objective Vital Signs & Weight: Vital Signs (12 hours) Temp Pulse Resp BP Pulse Ox 12/07/18 19:42 100 12/07/18 19:38 97.3 F L 115 H 18 116/70 100 Weight Admit Weight 30.345 kg Weight 32.659 kg Most Recent Monitor Data Heart Rate from ECG 114 NIBP 84/52 Respiration from ECG 18 I&O: 12/06/18 12/07/18 12/08/18 06:59 06:59 06:59 Intake Total 2770 2548 240 Balance 2770 2548 240 Result Diagrams: 12/08/18 06:23 12/08/18 06:23 Phys Exam - Physical Examination Constitutional: NAD HEENT: moist MMs Neck: no JVD, supple, full ROM Respiratory: no wheezing, no rhonchi, clear to auscultation bilateral Cardiovascular: RRR, no significant murmur Gastrointestinal: soft, non-tender, positive bowel sounds Musculoskeletal: pulses present Edema now 1+ nonpitting in bilateral lower extremities. Improved in arms. Neurological: normal sensation, moves all 4 limbs Psychiatric: normal affect, A&O x 3 Skin: no rash, normal turgor Deviation from normal: CRISTI wraps in place on lower extremities. Dx/Plan (1) Anemia Code(s): D64.9 - ANEMIA, UNSPECIFIED Status: Acute Qualifiers: Anemia type: unspecified type Qualified Code(s): D64.9 - Anemia, unspecified (2) Iron deficiency anemia due to dietary causes Code(s): D50.8 - OTHER IRON DEFICIENCY ANEMIAS Status: Acute (3) Neutropenia Code(s): D70.9 - NEUTROPENIA, UNSPECIFIED Status: Acute Qualifiers: Neutropenia type: unspecified Qualified Code(s): D70.9 - Neutropenia, unspecified (4) Pressure ulcer Code(s): L89.90 - PRESSURE ULCER OF UNSPECIFIED SITE, UNSPECIFIED STAGE Status : Acute Qualifiers: Pressure injury location: sacral region Pressure injury stage: unspecified pressure injury stage Qualified Code(s): L89.159 - Pressure ulcer of sacral region, unspecified stage (5) Rheumatoid arthritis Code(s): M06.9 - RHEUMATOID ARTHRITIS, UNSPECIFIED Status: Acute Qualifiers: Rheumatoid arthritis location: unspecified site Rheumatoid factor presence : unspecified presence Qualified Code(s): M06.9 - Rheumatoid arthritis, unspecified (6) Severe protein-calorie malnutrition Code(s): E43 - UNSPECIFIED SEVERE PROTEIN-CALORIE MALNUTRITION Status: Acute (7) Vitamin D deficiency Code(s): E55.9 - VITAMIN D DEFICIENCY, UNSPECIFIED Status: Acute (8) Anxiety Code(s): F41.9 - ANXIETY DISORDER, UNSPECIFIED Status: Chronic (9) Cachexia Code(s): R64 - CACHEXIA Status: Chronic - Plan Plan: 28 yo F with PMH of RA and anxiety presents to the ED for pressure wounds and was admitted with severe malnutrition. 1. Severe malnutrition 2/2 disordered eating - BMI 11.7->12.3->13.5->13.9->14.1 -> AM weight pending - Prealbumin steady at 9. - Pt gradually increase PO intake - PPN/lipids received 11/25-11/02. PICC placed 12/03 and TPN started. TPN volume changed from 1.5 L to 1.2 L on 12/07. - Will closely monitor electrolytes, I/Os, daily weights. Spoke with Nutrition & Pharmacy and all are in agreement to switch from daily labs to labs every 3 days (biweekly). Will change frequency of labs with next round of labs now due Friday, 12/11. - Patient needs multidisciplinary approach to care. and would benefit from inpatient eating disorder facility, however patient declines d/t anxiety. Continue open conversation about this. 2. Fever with unknown source (12/04) - in setting of moderate, bordering severe neutropenia. ANC 540. - continues to be afebrile (12/07) - no obvious source of infection at this time. CXR and UA negative. Lactic and procal negative. Resp viral panel neg. - Vancomycin and Zosyn started 12/04, d/c'd on 12/06. Cultures negative. 3. Elevated liver enzyme - AST bumped to 80 (12/05), down to 53 on 12/06, 32 on 12/07 - AM labs pending, will continue to monitor 4. Chronic pressure wounds, lower extremity and sacral - complicated by poor wound healing 2/2 severe malnutrition - Wound Care consulted, dressing changes every 3 days-was due on 12/07 but unclear whether performed d/t patient preference - Antibiotics discontinued 11/26 after 4 days treatment 5. Tachycardia -Patient tachycardic intermittently, always associated with anxiety and pt otherwise asymptomatic -EKG NSR. If pt starts exhibited symptoms of decompensation will get echo. 6. Anxiety - Long history of severe anxiety, previously had been prescribed antidepressants including paxil and zoloft but inability to tolerate side effects - [facility] has screened, patient not currently suicidal and unable to receive inpatient services in their facilities since she cannot perform all ADLs - Patient seen by Dr. Roslyn Ureña. 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 Also concern for OCD. - Mirtazapine tried 11/25 but made patient feel bad, could consider trying again in future with food and perhaps will have better tolerance. Pt refuses at this time along with any other med apart from benzo. Continue klonipin BID. 7. Anemia - likely mixture of severe iron deficiency anemia as well as chronic disease - Hgb 6.2, transfused 1 u prbc 11/24. Hgb downtrended to 6.9, transfused 1 u prbc 12/04 - AM CBC showed Hgb 6.8, will plan to transfuse another 1 u PRBC today. - repeat CBC 4 hours after transfusion, and check CBC on AM run 8. Neutropenia - Neutropenic precautions, gloves & mask in room - will continue to monitor 9. Vitamin D Deficiency - Severe, placed on Vitamin D supp available on formulary though not at ideal dosing 10. Hypoalbuminemia - continue to monitor, expect to see gradual improvement with improving nutritional status 11. Rheumatoid Arthritis - Was on home Hydroxychloroquine 200 mg PO daily, discontinued initially. No current concern for infection. Could consider restarting as pt has mentioned she feels it really helps her. Pt prefers to take only NSAIDs now. - NSAIDs prn pain - has seen cushion stuffer twice in past year for bloodwork. Was to be started on humira but unable 2/2 hematologic derangements - Dr. Taylor aware patient is hospitalized and recommended outpt follow up 12. NEW Diarrhea (12/07) -C. Difficile stool study still pending -may be due to multiple antibiotics give from 12/04 to 12/06 -Given 1 dose Loperamide daily @0900 -Patient requesting fiber be added to her diet--will add Psyllium (Metamucil) 1 cap daily 13. LE Edema (12/06) -CRISTI wraps placed 12/06, continues to improve with less swelling noted in LE this AM -likely due to current nutritional state Diet: TPN via PICC line VTE: SCDs held due to CRISTI wrap placement Code Status: FULL Dispo: Overall stable. AM labs pending. Continue TPN via Nutrition recs. Goal BMI 15< & resolve electrolyte disturbances before safe to medically discharge. Addendum - Attending - Attending Attestation Date/Time: 12/08/18 1110 I personally evaluated the patient and discussed the management with Dr. Renee. I agree with the History, Examination, Assessment and Plan documented above with any addition or exceptions noted below. Patient overall feeling improved today. We were able to coordinate with dietary and pharmacy to decrease the volume of her TPN that will hopefully help prevent worsening of her diffuse edema attributed to low protein state. She continues on TPN and we will be spacing her labs out somewhat as she has been stable. Hgb decreasing, and she will accept transfusion today. We also discussed the possibility of iron infusion to help with her chronically low iron stores. Her diarrhea is somewhat improved. Overall continue current mgmt. Continue discussions about the need for inpatient eating disorder treatment.
[2018-12-08 06:45] LABS: INR-International Normal Ratio 1.1; PTT 34.9 SEC (22.9-36.1); Prothrombin Time 13.8 SEC (12.0-14.7)
[2018-12-08 06:53] LABS: Hemoglobin 6.8 g/dL (12.0-16.0); Mean Corpuscular HGB CONC 31.4 g/dL (32.0-36.0); Mean Corpuscular Hemoglobin 24.4 pg (27.0-31.0); Mean Corpuscular Volume 77.7 fL (78.0-98.0); Platelet Count 177 thou/uL (130-400); RBC Distribution Width 19.7 % (11.5-14.5); White Blood Cell (WBC) Count 2.9 thou/uL (4.8-10.8)
[2018-12-08 07:36] LABS: Band 1 % (5-11); Eosinophils 1 % (0-10); Lymphocytes 76 % (21-51); MDiff Complete? YES; Microcytosis SLIGHT = 6-15 cells (100X) (0-5/hpf); Monocytes 8 % (0-10); Neutrophil 14 % (42-75); Platelet Morphology Comment Appears Adequate; Polychromasia SLIGHT = 2-3 cells (100X) (0-2/hpf)
[2018-12-08 08:27] LABS: ALT (SGPT) 19 U/L (8-55); AST (SGOT) 25 U/L (5-34); Albumin 2.4 g/dL (3.5-5.0); Alkaline Phosphatase 52 U/L (40-150); Anion Gap 9 mmol/L (10-20); BUN (Urea Nitrogen) 16 mg/dL (7.0-18.7); Bilirubin, Total 0.2 mg/dL (0.2-1.2); Calc. Creatinine Clearance 82 mL/min (70-130); Calcium 8.1 mg/dL (7.8-10.44); Carbon Dioxide 26 mmol/L (22-29); Chloride 103 mmol/L (98-107); Estimated GFR-MDRD Greater than 90; Globulin 3.2 g/dL (2.4-3.5); Glucose 88 mg/dL (70-105); Magnesium 2.2 mg/dL (1.6-2.6); Phosphorus 3.9 mg/dL (2.3-4.7); Potassium 4.3 mmol/L (3.5-5.1); Protein, Total 5.6 g/dL (6.0-8.3); Sodium 134 mmol/L (136-145)
[2018-12-08 08:37] LABS: Triglycerides 55 mg/dL (Less than 150)
[2018-12-08 08:42] LABS: Cardiac Risk 4.6 (Less than 4.5); Cholesterol 83 mg/dl (< 200 Desired); HDL Cholesterol 18 mg/dL (>60 Neg Risk); LDL Cholesterol, Calculated 54 mg/dL
[2018-12-08] MEDS ORDERED: Loperamide HCl 2 MG CAP PO SCH (09:00)
[2018-12-08] MEDS: clonazePAM 1 MG TAB PO SCH ×2 (09:03→22:48)
[2018-12-08] MEDS: Multivitamins CHEW w/Iron Tablet PO SCH (09:03)
[2018-12-08] MEDS: Ondansetron PF 4 MG/2 ML Vial IVP PRN ×2 (09:07→22:44)
[2018-12-08] MEDS: Naproxen 500 MG TAB PO PRN (12:53)
--- NOTE | 2018-12-08 14:08 | PRG ---
DATE OF SERVICE: 12/06/2018 TRANSITION OF CARE NOTE: Shara Copeland in a 28-year-old female with history of severe anxiety , self-reported OCD, and rheumatoid arthritis, presented to the emergency department with a 2-3 week history of ulcerations. In the emergency department, she received vancomycin, clindamycin, and Zosyn. She was admitted for these pressure ulcers on her lower extremities as well as her sacrum. There was concern initially for infection. Wound Care was consulted. Additionally, the patient was noted to be cachectic with an initial reported weight of 25 kg. Significant discussions were had with the patient considering her weight. It appears that her severe anxiety and OCD were contributing to an elimination-type diet with very specific ways of preparation of food that she would eat, resulting in her weight. She denies insecurity about her weight. In regards to her severe malnutrition this is secondary to disordered eating, the patient was started on PPN. The patient was working on gradual p.o. intake. A PICC line was placed on 12/03/2018. TPN was started. In regard to her pressure ulcers, these were likely complicated by her severe malnutrition. Antibiotics were discontinued after 4 days of treatment. The patient is often tachycardic during vital sign checks. The tachycardia has always been associated with anxiety. The patient is otherwise asymptomatic. EKG repeated during this hospitalization showed normal sinus rhythm, may consider getting an echocardiogram if decompensation is a concern. In regard to her psychiatric history, the patient was initially screened by [facility]; however, the patient is not currently suicidal and unable to receive service at their facilities, as she cannot perform all ADLs. The patient was also evaluated by Dr. Kenia Ureña. 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 The patient has been on Klonopin scheduled twice daily. We have discussed multiple times adding another medication for anxiety treatment. She tried mirtazapine once but it made her feel bad and she has refused to try any other medication for worry of nausea. The patient can be preoccupied with the fear of nausea. The patient has been anemic. Iron studies have showed this to be a mixture of severe iron deficiency as well as anemia of chronic disease. Hemoglobin has been trended and the patient up to this point has received 2 units of packed red blood cells. There is no suspected source of bleeding and it is more likely due to lack of bone marrow production. The patient is neutropenic and on precautions. She has also been found to be vitamin D deficient, placed on vitamin D supplementation. Dr. Taylor is her supervisor ornamental ironworking in the outpatient setting. I let him know that the patient is hospitalized and he recommended outpatient followup. He noted that the patient had been through many different rheumatoid arthritis treatment medications, but could not tolerate them due to nausea or side effects. At the time of admission, she had been taking hydroxychloroquine 200 mg p.o. daily, however, this was discontinued at hospitalization and the patient was not interested in restarting up until this point. She has been taking NSAIDs as needed for aches/pains. The shoemaking finisher team has been on board throughout the hospitalization, providing recommendations for both PPN and TPN. On 12/04/2018, the patient has a fever of 100.9, was worked up for a fever with unknown source in the setting of moderate bordering, severe neutropenia. ANC was 540 that day. Workup was essentially all negative and there are plans to discontinue IV antibiotics after culture results negative as well. This fever was likely more inflammatory in nature. Plan is to continue current management at this point. Recommendations are that the patient is not stable for outpatient management until BMI is 15 to 16, currently it is at 14 and the patient has continued to make steady weight gain. Job ID: [id number] [facility]
[2018-12-08 21:05] LABS: Eosinophils 2 % (0-10); Hemoglobin 9.3 g/dL (12.0-16.0); Lymphocytes 71 % (21-51); MDiff Complete? YES; Mean Corpuscular HGB CONC 31.8 g/dL (32.0-36.0); Mean Corpuscular Hemoglobin 25.5 pg (27.0-31.0); Mean Corpuscular Volume 80.1 fL (78.0-98.0); Mean Platelet Volume 9.7 fL (7.4-10.4); Monocytes 5 % (0-10); Neutrophil 21 % (42-75); Platelet Count 162 thou/uL (130-400); Platelet Morphology Comment Appears Adequate; RBC Distribution Width 19.4 % (11.5-14.5); Red Blood Cell (RBC) Count 3.65 mill/uL (4.20-5.40); White Blood Cell (WBC) Count 2.3 thou/uL (4.8-10.8)
[2018-12-08] MEDS: [UNRECOGNIZED DRUG - OTHER] IV SCH (22:41)
[2018-12-08] MEDS: SODIUM ACETATE IV SCH (22:41)
[2018-12-08] MEDS: CALCIUM GLUCONATE IV SCH (22:41)
[2018-12-08] MEDS: SODIUM CHLORIDE IV SCH (22:41)
--- NOTE | 2018-12-09 05:37 | PDOC.FM ---
- Subjective Subjective: Patient required transfusion of 1 unit prbcs yesterday, repeat Hgb had risen to 9.3. It was proposed to patient yesterday that she might need an iron infusion, and she wanted to consider side effects before this is initiated. Additional discussion about possible side effects was had this morning and patient states she needs more time to consider the infusion. Patient additionally complains of increased generalized pain this morning. She says she has not been receiving Naproxen when she requests it, last dose was given at 1215pm yesterday. Patient also says she is more nauseous this morning. - Objective Vital Signs & Weight: Vital Signs (12 hours) Temp Pulse Resp BP Pulse Ox 12/08/18 20:43 97.5 F L 102 H 18 94/62 96 12/08/18 19:39 96 Weight Admit Weight 30.345 kg Weight 34.927 kg Most Recent Monitor Data Heart Rate from ECG 114 NIBP 84/52 Respiration from ECG 18 I&O: 12/07/18 12/08/18 12/09/18 06:59 06:59 06:59 Intake Total 2548 1293 1115 Balance 2548 1293 1115 Result Diagrams: 12/08/18 20:02 12/08/18 06:23 Phys Exam - Physical Examination Constitutional: NAD appears chronically ill HEENT: moist MMs, sclera anicteric Neck: no JVD Respiratory: no wheezing, no rhonchi, clear to auscultation bilateral Cardiovascular: RRR, no significant murmur Gastrointestinal: soft, non-tender, positive bowel sounds Musculoskeletal: pulses present edema improved in extremities, CRISTI wraps in place on LE Neurological: normal sensation, moves all 4 limbs Psychiatric: A&O x 3 Deviation from normal: depressed affect Skin: no rash, normal turgor Dx/Plan (1) Anemia Code(s): D64.9 - ANEMIA, UNSPECIFIED Status: Acute Qualifiers: Anemia type: unspecified type Qualified Code(s): D64.9 - Anemia, unspecified (2) Iron deficiency anemia due to dietary causes Code(s): D50.8 - OTHER IRON DEFICIENCY ANEMIAS Status: Acute (3) Neutropenia Code(s): D70.9 - NEUTROPENIA, UNSPECIFIED Status: Acute Qualifiers: Neutropenia type: unspecified Qualified Code(s): D70.9 - Neutropenia, unspecified (4) Pressure ulcer Code(s): L89.90 - PRESSURE ULCER OF UNSPECIFIED SITE, UNSPECIFIED STAGE Status : Acute Qualifiers: Pressure injury location: sacral region Pressure injury stage: unspecified pressure injury stage Qualified Code(s): L89.159 - Pressure ulcer of sacral region, unspecified stage (5) Rheumatoid arthritis Code(s): M06.9 - RHEUMATOID ARTHRITIS, UNSPECIFIED Status: Acute Qualifiers: Rheumatoid arthritis location: unspecified site Rheumatoid factor presence : unspecified presence Qualified Code(s): M06.9 - Rheumatoid arthritis, unspecified (6) Severe protein-calorie malnutrition Code(s): E43 - UNSPECIFIED SEVERE PROTEIN-CALORIE MALNUTRITION Status: Acute (7) Vitamin D deficiency Code(s): E55.9 - VITAMIN D DEFICIENCY, UNSPECIFIED Status: Acute (8) Anxiety Code(s): F41.9 - ANXIETY DISORDER, UNSPECIFIED Status: Chronic (9) Cachexia Code(s): R64 - CACHEXIA Status: Chronic - Plan Plan: 28 yo F with PMH of RA and anxiety presents to the ED for pressure wounds and was admitted with severe malnutrition. 1. Severe malnutrition 2/2 disordered eating - BMI 11.7->12.3->13.5->13.9->14.1 -> 15.0 (@ 4PM on 12/08) -> AM weight pending - Prealbumin steady at 9. - Pt gradually increase PO intake - PPN/lipids received 11/25-11/02. PICC placed 12/03 and TPN started. TPN volume changed from 1.5 L to 1.2 L on 12/07. - Will closely monitor electrolytes, I/Os, daily weights. Spoke with Nutrition & Pharmacy and all are in agreement to switch from daily labs to labs every 3 days (biweekly). Will change frequency of labs with next round of labs now due Friday, 12/11. - Patient needs multidisciplinary approach to care. and would benefit from inpatient eating disorder facility, however patient declines d/t anxiety. Continue open conversation about this. 2. Fever with unknown source (12/04) - in setting of moderate, bordering severe neutropenia. ANC 540. - continues to be afebrile (12/07) - no obvious source of infection at this time. CXR and UA negative. Lactic and procal negative. Resp viral panel neg. - Vancomycin and Zosyn started 12/04, d/c'd on 12/06. Cultures negative. 3. Elevated liver enzyme - AST bumped to 80 (12/05), down to 53 on 12/06, 32 on 12/07 - will continue to monitor with repeat labs on 12/11 4. Chronic pressure wounds, lower extremity and sacral - complicated by poor wound healing 2/2 severe malnutrition - Wound Care consulted, dressing changes every 3 days-was due on 12/07 but patient continues to refuse wound care in the room, wound ostomy care nurse has left dressings in her room - Antibiotics discontinued 11/26 after 4 days treatment 5. Tachycardia -Patient tachycardic intermittently, always associated with anxiety and pt otherwise asymptomatic -EKG NSR. If pt starts exhibited symptoms of decompensation will get echo. 6. Anxiety - Long history of severe anxiety, previously had been prescribed antidepressants including paxil and zoloft but inability to tolerate side effects - [facility] has screened, patient not currently suicidal and unable to receive inpatient services in their facilities since she cannot perform all ADLs - Patient seen by Dr. Roslyn Ureña. 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 Also concern for OCD. - Mirtazapine tried 11/25 but made patient feel bad, could consider trying again in future with food and perhaps will have better tolerance. Pt refuses at this time along with any other med apart from benzo. Continue klonipin BID. 7. Anemia - likely mixture of severe iron deficiency anemia as well as chronic disease - Hgb 6.2, transfused 1 u prbc 11/24. Hgb downtrended to 6.9, transfused 1 u prbc 12/04, Hgb downtrended to 6.8 on 12/08 so transfused another 1 u prbc - repeat CBC 4 hours after 12/08 transfusion had Hgb 9.3, and AM CBC pending - patient may require iron infusion, if patient accepts then may need pretreatment with steroids before and up to 4-5 days following the procedure 8. Neutropenia - Neutropenic precautions, gloves & mask in room - will continue to monitor 9. Vitamin D Deficiency - Severe, placed on Vitamin D supp available on formulary though not at ideal dosing 10. Hypoalbuminemia - continue to monitor, expect to see gradual improvement with improving nutritional status 11. Rheumatoid Arthritis - Was on home Hydroxychloroquine 200 mg PO daily, discontinued initially. No current concern for infection. Could consider restarting as pt has mentioned she feels it really helps her. Pt prefers to take only NSAIDs now. - NSAIDs prn pain--will be changed on 12/09 to scheduled Naproxen BID due to suspected RA flare -add Pepcid for GI protection - has seen well tester twice in past year for bloodwork. Was to be started on humira but unable 2/2 hematologic derangements - Dr. Taylor aware patient is hospitalized and recommended outpt follow up 12. Diarrhea (12/07)--resolved -C. Difficile stool study still pending -may be due to multiple antibiotics give from 12/04 to 12/06 -Given 1 dose Loperamide daily @0900 -Patient requesting fiber be added to her diet--added Psyllium (Metamucil) 1 cap daily (12/08) 13. LE Edema (12/06) -CRISTI wraps placed 12/06, continues to improve with less swelling noted in LE this AM -likely due to current nutritional state Diet: TPN via PICC line VTE: SCDs held due to CRISTI wrap placement Code Status: FULL Dispo: Overall stable. AM labs pending for 12/11/18. Continue TPN via Nutrition recs. Goal BMI 15< & resolve electrolyte disturbances before safe to medically discharge. Addendum - Attending - Attending Attestation Date/Time: 12/09/18 9920 I personally evaluated the patient and discussed the management with Dr. Renee. I agree with the History, Examination, Assessment and Plan documented above with any addition or exceptions noted below. Patient overall stable and doing well. Weight continues to improve. Feeling better after transfusion. She is still considering the iron infusion. Lengthly discussion this morning about discharge plans and how she will need to continue to work on her nutrition at home if they do not desire inpatient treatment or being discharged with TPN. No major changes to mgmt today.
[2018-12-09] MEDS ORDERED: Naproxen 500 MG TAB PO SCH (08:15)
[2018-12-09] MEDS: clonazePAM 1 MG TAB PO SCH ×2 (10:12→22:08)
[2018-12-09] MEDS: Multivitamins CHEW w/Iron Tablet PO SCH (10:13)
[2018-12-09] MEDS: Ondansetron PF 4 MG/2 ML Vial IVP PRN ×2 (10:14→22:11)
[2018-12-09] MEDS: Metamucil PACK PO SCH (10:14)
[2018-12-09 11:11] VITALS: BMI 15.0
[2018-12-09] MEDS: SODIUM ACETATE IV SCH (22:07)
[2018-12-09] MEDS: Famotidine 20 MG TAB PO SCH (22:07)
[2018-12-09] MEDS: CALCIUM GLUCONATE IV SCH (22:07)
[2018-12-09] MEDS: [UNRECOGNIZED DRUG - OTHER] IV SCH (22:07)
[2018-12-09] MEDS: SODIUM CHLORIDE IV SCH (22:07)
[2018-12-09] MEDS: Naproxen 500 MG TAB PO SCH (22:08)
--- NOTE | 2018-12-10 05:39 | PDOC.FM ---
- Subjective Subjective: Patient is sitting up in bed reading this morning. Patient states she wants to leave AMA today, relays that she is tired of being on TPN. States that she was told by nutrition that she would be "on TPN for life" and she does not want this. She says she has met the weight goal that was set for her to be discharged and so she wants to go home now. Complains of constant nausea, still has some pain. Patient reminded that she has Naproxen scheduled and has Tylenol available upon request. Patient inquiring when she can restart her RA meds. - Objective Vital Signs & Weight: Vital Signs (12 hours) Temp Pulse Resp BP Pulse Ox 12/09/18 19:54 97.5 F L 99 16 98/67 99 Weight Admit Weight 30.345 kg Weight 34.927 kg Most Recent Monitor Data Heart Rate from ECG 114 NIBP 84/52 Respiration from ECG 18 I&O: 12/08/18 12/09/18 12/10/18 06:59 06:59 06:59 Intake Total 1293 1115 2008.4 Balance 1293 1115 2008.4 Result Diagrams: 12/10/18 08:40 12/10/18 08:40 Phys Exam - Physical Examination Constitutional: NAD HEENT: moist MMs, sclera anicteric Neck: no JVD, supple, full ROM Respiratory: no wheezing, no rales, no rhonchi, clear to auscultation bilateral Cardiovascular: RRR, no significant murmur Gastrointestinal: soft, non-tender, positive bowel sounds Musculoskeletal: pulses present CRISTI wraps in place on Lower extremities Neurological: normal sensation, moves all 4 limbs Psychiatric: A&O x 3 Deviation from normal: depressed affect Skin: normal turgor Deviation from normal: has known wounds on lower extremities, but has refused wound care -: wraps currently in place on LE Dx/Plan (1) Anemia Code(s): D64.9 - ANEMIA, UNSPECIFIED Status: Acute Qualifiers: Anemia type: unspecified type Qualified Code(s): D64.9 - Anemia, unspecified (2) Iron deficiency anemia due to dietary causes Code(s): D50.8 - OTHER IRON DEFICIENCY ANEMIAS Status: Acute (3) Neutropenia Code(s): D70.9 - NEUTROPENIA, UNSPECIFIED Status: Acute Qualifiers: Neutropenia type: unspecified Qualified Code(s): D70.9 - Neutropenia, unspecified (4) Pressure ulcer Code(s): L89.90 - PRESSURE ULCER OF UNSPECIFIED SITE, UNSPECIFIED STAGE Status : Acute Qualifiers: Pressure injury location: sacral region Pressure injury stage: unspecified pressure injury stage Qualified Code(s): L89.159 - Pressure ulcer of sacral region, unspecified stage (5) Rheumatoid arthritis Code(s): M06.9 - RHEUMATOID ARTHRITIS, UNSPECIFIED Status: Acute Qualifiers: Rheumatoid arthritis location: unspecified site Rheumatoid factor presence : unspecified presence Qualified Code(s): M06.9 - Rheumatoid arthritis, unspecified (6) Severe protein-calorie malnutrition Code(s): E43 - UNSPECIFIED SEVERE PROTEIN-CALORIE MALNUTRITION Status: Acute (7) Vitamin D deficiency Code(s): E55.9 - VITAMIN D DEFICIENCY, UNSPECIFIED Status: Acute (8) Anxiety Code(s): F41.9 - ANXIETY DISORDER, UNSPECIFIED Status: Chronic (9) Cachexia Code(s): R64 - CACHEXIA Status: Chronic - Plan Plan: 28 yo F with PMH of RA and anxiety presents to the ED for pressure wounds and was admitted with severe malnutrition. 1. Severe malnutrition 2/2 disordered eating - BMI 11.7->12.3->13.5->13.9->14.1 -> 15.0 (@ 4PM on 12/08) -> AM weight pending - Prealbumin steady at 9. - Pt gradually increase PO intake - PPN/lipids received 11/25-11/02. PICC placed 12/03 and TPN started. TPN volume changed from 1.5 L to 1.2 L on 12/07. - Will closely monitor electrolytes, I/Os, daily weights. Spoke with Nutrition & Pharmacy and all are in agreement to switch from daily labs to labs every 3 days (biweekly). Will change frequency of labs with next round of labs now due Friday, 12/11. - Patient needs multidisciplinary approach to care. and would benefit from inpatient eating disorder facility, however patient declines d/t anxiety. Continue open conversation about this. -Patient refuses at-home TPN. Patient stating she wants to be taken off TPN today. Will go ahead and order next round of labs now. 2. Fever with unknown source (12/04) - in setting of moderate, bordering severe neutropenia. ANC 540. - continues to be afebrile (12/07) - no obvious source of infection at this time. CXR and UA negative. Lactic and procal negative. Resp viral panel neg. - Vancomycin and Zosyn started 12/04, d/c'd on 12/06. Cultures negative. 3. Elevated liver enzyme - AST bumped to 80 (12/05), down to 53 on 12/06, 32 on 12/07 - will continue to monitor with repeat labs today 4. Chronic pressure wounds, lower extremity and sacral - complicated by poor wound healing 2/2 severe malnutrition - Wound Care consulted, dressing changes every 3 days-was due on 12/07 but patient continues to refuse wound care in the room, wound career placement services counselor has left dressings in her room - Antibiotics discontinued 11/26 after 4 days treatment 5. Tachycardia -Patient tachycardic intermittently, always associated with anxiety and pt otherwise asymptomatic -EKG NSR. If pt starts exhibited symptoms of decompensation will get echo. 6. Anxiety - Long history of severe anxiety, previously had been prescribed antidepressants including paxil and zoloft but inability to tolerate side effects - [facility] has screened, patient not currently suicidal and unable to receive inpatient services in their facilities since she cannot perform all ADLs - Patient seen by Dr. Roslyn Ureña. 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 Also concern for OCD. - Mirtazapine tried 11/25 but made patient feel bad, could consider trying again in future with food and perhaps will have better tolerance. Pt refuses at this time along with any other med apart from benzo. Continue klonipin BID. 7. Anemia - likely mixture of severe iron deficiency anemia as well as chronic disease - Hgb 6.2, transfused 1 u prbc 11/24. Hgb downtrended to 6.9, transfused 1 u prbc 12/04, Hgb downtrended to 6.8 on 12/08 so transfused another 1 u prbc - repeat CBC 4 hours after 12/08 transfusion had Hgb 9.3 - patient may require iron infusion, if patient accepts then may need pretreatment with Solumedrol 125 mg or Dexamethasone before and then Prednisone 1mg/kg per day for 4 days following the procedure 8. Neutropenia - Neutropenic precautions, gloves & mask in room - will continue to monitor 9. Vitamin D Deficiency - Severe, placed on Vitamin D supp available on formulary though not at ideal dosing 10. Hypoalbuminemia - continue to monitor, expect to see gradual improvement with improving nutritional status 11. Rheumatoid Arthritis - Was on home Hydroxychloroquine 200 mg PO daily, discontinued initially. No current concern for infection. Could consider restarting as pt has mentioned she feels it really helps her. Pt prefers to take only NSAIDs now. - NSAIDs prn pain--will be changed on 12/09 to scheduled Naproxen BID due to suspected RA flare -add Pepcid for GI protection - has seen rock breaker twice in past year for bloodwork. Was to be started on humira but unable 2/2 hematologic derangements - Dr. Taylor aware patient is hospitalized and recommended outpt follow up 12. Diarrhea (12/07)--resolved -C. Difficile stool study still pending -may be due to multiple antibiotics give from 12/04 to 12/06 -Given 1 dose Loperamide daily @0900 -Patient requesting fiber be added to her diet--added Psyllium (Metamucil) 1 cap daily (12/08) 13. LE Edema (12/06) -CRISTI wraps placed 12/06, continues to improve with less swelling noted in LE this AM -likely due to current nutritional state Diet: TPN via PICC line VTE: SCDs held due to CRISTI wrap placement Code Status: FULL Dispo: Overall stable. Goal BMI 15< & resolve electrolyte disturbances before safe to medically discharge. Patient desiring home today, will recheck labs and weight this morning. If patient goes home should still hold Plaquenil due to low absolute neutrophil count. Recommend continue alternating Tylenol & Ibuprofen for pain control. Addendum - Attending - Attending Attestation Date/Time: 12/10/18 3990 I personally evaluated the patient and discussed the management with Dr. Renee. I agree with the History, Examination, Assessment and Plan documented above with any addition or exceptions noted below. Patient her and continuing TPN for her poor nutritional status due to anxiety and OCD status. She has been resistant to further treatments for anxiety other than Klonopin, and her and family have rejected the idea of inpatient eating disorder facility. She has been on TPN for about 7-10 days and has done well. She has gained near 15 pounds of body weight, and her BMI is currently at 15.8, which is well accepted goal for outpatient therapy. Patient and mother are at the point where they are contemplating leaving AMA if not discharged soon. They are not interested in outpatient TPN, and they report they are well motivated to ensure she improves nutritional status in the outpatient setting so that she does not end up in the condition she was in 2 weeks ago. Her labs have been checked and all is stable. Patient and mother are very happy with the care she has been provided and acknowledge that we "saved her life". As they are technically medically stable for discharge based on well established criteria, I see no reason that we must keep her in hospital any longer. Lengthy discussion this morning about importance of good follow up with our clinic and her rock breaker, and that she must continue to work on improving nutrition at home or else she will end up back in the hospital and this will certainly shorten her expected life span. She and mother are in agreement and understand. While her discharge is certainly not the ideal situation (which would be inpatient treatment facility), she will be discharged home as she has made substantial improvement and is not currently at such a malnourished state that her life is immediately threatened.
[2018-12-10] MEDS: Naproxen 500 MG TAB PO SCH (08:48)
[2018-12-10] MEDS: clonazePAM 1 MG TAB PO SCH (08:48)
[2018-12-10] MEDS: Ondansetron PF 4 MG/2 ML Vial IVP PRN (08:49)
[2018-12-10] MEDS: Famotidine 20 MG TAB PO SCH (08:49)
[2018-12-10] MEDS: Multivitamins CHEW w/Iron Tablet PO SCH (08:49)
[2018-12-10 09:11] LABS: Hemoglobin 8.9 g/dL (12.0-16.0); Mean Corpuscular HGB CONC 31.8 g/dL (32.0-36.0); Mean Corpuscular Hemoglobin 25.8 pg (27.0-31.0); Mean Corpuscular Volume 81.1 fL (78.0-98.0); Mean Platelet Volume 9.5 fL (7.4-10.4); Platelet Count 183 thou/uL (130-400); RBC Distribution Width 19.4 % (11.5-14.5); Red Blood Cell (RBC) Count 3.45 mill/uL (4.20-5.40); White Blood Cell (WBC) Count 2.5 thou/uL (4.8-10.8)
[2018-12-10 09:13] LABS: INR-International Normal Ratio 1.1; PTT 35.3 SEC (22.9-36.1); Prothrombin Time 13.9 SEC (12.0-14.7)
[2018-12-10 09:15] LABS: ALT (SGPT) 19 U/L (8-55); AST (SGOT) 25 U/L (5-34); Albumin 2.4 g/dL (3.5-5.0); Alkaline Phosphatase 54 U/L (40-150); Anion Gap 9 mmol/L (10-20); BUN (Urea Nitrogen) 19 mg/dL (7.0-18.7); Bilirubin, Total 0.2 mg/dL (0.2-1.2); Calc. Creatinine Clearance 88 mL/min (70-130); Calcium 7.8 mg/dL (7.8-10.44); Carbon Dioxide 26 mmol/L (22-29); Cardiac Risk 4.4 (Less than 4.5); Chloride 107 mmol/L (98-107); Cholesterol 83 mg/dl (< 200 Desired); Estimated GFR-MDRD Greater than 90; Globulin 3.3 g/dL (2.4-3.5); Glucose 98 mg/dL (70-105); HDL Cholesterol 19 mg/dL (>60 Neg Risk); LDL Cholesterol, Calculated 50 mg/dL; Phosphorus 2.6 mg/dL (2.3-4.7); Potassium 3.7 mmol/L (3.5-5.1); Protein, Total 5.7 g/dL (6.0-8.3); Sodium 138 mmol/L (136-145); Triglycerides 69 mg/dL (Less than 150)
[2018-12-10] MEDS: Metamucil PACK PO SCH (10:05)
[2018-12-10 10:24] LABS: Band 8 % (5-11); Eosinophils 1 % (0-10); Lymphocytes 76 % (21-51); MDiff Complete? YES; Metamyelocyte 3 % (0-0); Monocytes 1 % (0-10); Neutrophil 8 % (42-75); Reactive Lymphocytes 3 % (0-10)
[2018-12-10 15:25] VITALS: BP 93/63; TEMP 97.7
--- NOTE | 2018-12-11 10:40 | DIS ---
DATE OF ADMISSION: 11/23/2018 DATE OF DISCHARGE: 12/10/2018 ADMITTING ATTENDING: Sergio Calvo MD DISCHARGE ATTENDING: Parish Cyr MD. CONSULTATIONS: 1. Wound Care. 2. Case Management. 3. Dietitian. 4. MR. 5. Dr. Kenia Ureña, [facility]. PROCEDURES: 1. Chest x-ray on November 23, 2018; no radiographic evidence of acute cardiopulmonary process. 2. PICC line placement on November 23, 2018. 3. EKG on December 02, 2018; sinus tachycardia. 4. PICC line placement on December 03, 2018. 5. Chest x-ray on December 04, 2018; no significant interval change compared to 11/23/2018 exam. PRIMARY DIAGNOSES: 1. Lower extremity cellulitis. 2. Severe malnutrition secondary to eating disorder (restrictive). SECONDARY DIAGNOSES: 1. Fever with unknown source. 2. Elevated liver enzymes. 3. 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 4. Tachycardia. 5. Anxiety. 6. Anemia, likely mixture of severe iron deficiency and chronic disease. 7. Neutropenia. 8. Vitamin D deficiency. 9. Hypoalbuminemia. 10. Rheumatoid arthritis. 11. Lower extremity edema. 12. Diarrhea. DISCHARGE MEDICATIONS: 1. Acetaminophen 650 mg p.o. q.6 hours p.r.n. for pain. 2. Vitamin D3 at 1000 units p.o. daily. 3. Klonopin (clonazepam) 1 mg p.o. b.i.d. 4. Famotidine (Pepcid) 20 mg p.o. b.i.d. 5. Naproxen 500 mg p.o. b.i.d. 6. Zofran 4 mg p.o. q.6 hours for nausea. MEDICATIONS: Discontinued medications: 1. Plaquenil (hydroxychloroquine sulfate) 200 mg p.o. at bedtime. 2. Lorazepam 2 mg IVP p.r.n. for anxiety. 3. Vancomycin 420 mg IVPB x1 dose. 4. Zosyn 3.375 g x1 dose. 5. Clindamycin 250 mg IVPB x1 dose. 6. LR IV at 70 mL/h, 1000 mL x1 bag. 7. Loperamide (Imodium) 1 mg p.o. q.4 hours p.r.n. for diarrhea. 8. D5 and 0.9% NS IV at 50 mL an hour, started November 24, 2018; stopped November 25, 2018. 9. Mirtazapine 15 mg p.o. at bedtime, started November 24, 2018; stopped November 30, 2018. 10. Keflex 500 mg p.o. b.i.d. started and ended on November 24, 2018. 11. Pepto-Bismol 30 mL p.o. q.4 hours for diarrhea/loose stools given x1 dose, November 24, 2018. 12. TPN, managed by Nutrition, see Dietary notes. 13. Simethicone 80 mg p.o. p.c. at bedtime p.r.n. for gas pain, started November 27, 2018; stopped December 10, 2018. 14. Multivitamin. 15. Senna/docusate one tab p.o. daily, started November 29, 2018; stopped December 07, 2018. 16. Morphine 2 mg slow IVP q.4 hours p.r.n. for pain. 17. Zosyn 3.375 g started December 04, 2018; stopped December 06, 2018. 18. Vancomycin 750 mg started December 04, 2018; stopped December 06, 2018. 19. Metamucil (psyllium) one package p.o. daily started December 08, 2018, stopped December 10, 2018. HISTORY OF PRESENT ILLNESS AND HOSPITAL COURSE: Shara Bates is a 28-year-old female with a history of severe anxiety, self-reported OCD, and rheumatoid arthritis, who presented to the emergency department with a 2- to 3-week history of ulceration. In the emergency department, she received vancomycin, clindamycin, and Zosyn. She was admitted for these pressure ulcers on her lower extremities as well as her sacrum. There was concern initially for infection. Wound Care was consulted. Additionally, the patient was noted to be cachectic with an initial reported weight of 25 kg. Significant discussions were had with the patient considering her weight. It appears that her severe anxiety and OCD were contributing to an elimination type diet with very specific ways of preparation of food that she would eat, resulting in her current weight. She denies insecurity about her weight. In regard to her severe malnutrition, this is secondary to disordered eating, the patient was started on TPN. The patient was working on gradual p.o. intake. A PICC line was placed on December 03, 2018, and TPN was started. In regard to her pressure ulcers, these were likely complicated by her severe malnutrition. Antibiotics were discontinued after 4 days of treatment. The patient is often tachycardic during vital sign checks. The tachycardia has always been associated with anxiety. The patient is otherwise asymptomatic. EKG repeated during this hospitalization showed normal sinus rhythm, may consider getting an echocardiogram if decompensation is a concern. In regard to her psychiatric history, the patient was initially screened by [facility], however, the patient is not currently suicidal and unable to receive service at their facilities as she cannot perform all ADLs. The patient was also evaluated by Dr. Kenia Ureña. 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 The patient has been on Klonopin scheduled twice daily. We will discuss multiple times adding another medication for anxiety treatment. She tried mirtazapine once, but it made her feel bad and she has refused to try any other medication for worry of nausea. The patient can be preoccupied with the fear of nausea. The patient has been anemic. Iron studies have shown this to be a mixture of severe iron deficiency as well as anemia of chronic disease. Hemoglobin has trended and the patient up to this point has received 3 units of packed red blood cells. There is no suspected source of bleeding and it is more likely due to lack of bone marrow production. The patient is neutropenic and was placed on precautions for the duration of her hospital stay. She has also been found to be vitamin D deficient and was placed on vitamin D supplementation. Dr. Taylor is her agitator operator in the outpatient setting. He was notified that the patient was hospitalized and he recommended outpatient followup and holding her Plaquenil during this stay. He noted that the patient had been through many different rheumatoid arthritis treatment medication, but could not tolerate them due to nausea or side effects. She was taking NSAIDs as needed for aches and pains for the duration of her hospital stay. The technical support 1 software engineer team at [facility] has been onboard throughout the entire hospitalization providing recommendations for both TPN and TPM. On December 04, 2018, the patient had a fever of 100.9 and was worked up for a fever with unknown source in the setting of moderate bordering severe neutropenia. Absolute neutrophil count for that day was 540. Workup was essentially all negative and IV antibiotics were discontinued after culture results were negative on December 06, 2018. The fever was likely more inflammatory in nature. The patient continued to complain of continued nausea for the duration of the rest of her hospital stay. On December 09, 2018, the patient complained of extreme pain all over her body. This was attributed to a possible RA flare as she has been off her Plaquenil for this hospital stay. The patient was encouraged to use naproxen and Tylenol alternating doses as needed for her pain and the patient's mother stated that this is what they do at home as well. On the morning of December 10, 2018, the patient had reached a discharge BMI of 15.8 and her labs did not demonstrate any electrolyte abnormalities. Thus, she was being medically stable for discharge. The patient and her mother also stated that they wanted to leave AMA as she was tired of being on TPN and this caused her great anxiety. She relays that she is now motivated to consume more p.o. intake. At this point, the patient was deemed stable for discharge back home with close followup by Dr. Mtz at [facility] and Dr. Taylor, her rheumatoid arthritis specialist. PERTINENT LABS: Labs on November 23, 2018, admission labs. CBC; WBC 2.8, hemoglobin 7.6, hematocrit 25.2, platelets 269. BMP; sodium 133, potassium 3.6, chloride 103, carbon dioxide 20, BUN 12, creatinine 0.57, glucose 78, calcium 8.6. Lactic acid 1.2. Phosphorus 3.6, magnesium 1.8. Iron 9, TIBC 139, ferritin 85.65. CRP 5.19. TSH 0.89. Plasma alcohol less than 10. Labs on December 10, 2018, discharge labs. CBC: WBC 2.5, hemoglobin 8.9, hematocrit 28.0, platelets 183. PT 13.9, INR 1.1, APTT 35.3. BMP: Sodium 138, potassium 3.7, chloride 107, carbon dioxide 26, BUN 19, creatinine 0.58, glucose 98. Pre-albumin 10.0. Procalcitonin 0.04. Lipid panel: Triglycerides 69, cholesterol 83, LDL 50, HDL 19, heart disease risk ratio 4.4. DISPOSITION: Stable. DISCHARGE INSTRUCTIONS: 1. Location: Home. 2. Diet: Regular with no restrictions. 3. Activity: As tolerated. 4. Follow up with Dr. Katlin Mtz at [facility] in 3 days. 5. Follow up with Dr. James. 6. Claudia as soon as possible after discharge. 7. Patient instructed to not resume taking Plaquenil until she sees Dr. Taylor for RA management. 8. Patient instructed to continue taking naproxen and Tylenol (alternating dosing) for pain control until she sees Dr. Taylor. Job ID: [id number]
== END 2018-12-10 15:25 | disposition home or self-care (01) | DRG 887 ==
LOC: ERS 14:44 → T4-A 19:11
PROVIDERS: ADMIT Family Medicine; ATTEND Family Medicine
PROC: 02HV33Z Insertion of Infusion Device into Superior Vena Cava, Percutaneous Approach (ICD-10-PCS; principal; 2018-12-03)
PROC: B5181ZA Fluoroscopy of Superior Vena Cava using Low Osmolar Contrast, Guidance (ICD-10-PCS; 2018-12-03)
PROC: 3E0436Z Introduction of Nutritional Substance into Central Vein, Percutaneous Approach (ICD-10-PCS; 2018-12-03)
PROC: B548ZZA Ultrasonography of Superior Vena Cava, Guidance (ICD-10-PCS; 2018-12-03)
PROC: 30233N1 Transfusion of Nonautologous Red Blood Cells into Peripheral Vein, Percutaneous Approach (ICD-10-PCS; 2018-12-04)
DX: F50.9 Eating disorder, unspecified (principal); E43 Unspecified severe protein-calorie malnutrition; R64 Cachexia; Z68.1 Body mass index [BMI] 19.9 or less, adult; F41.9 Anxiety disorder, unspecified; M06.9 Rheumatoid arthritis, unspecified; F42.9 Obsessive-compulsive disorder, unspecified; L89.899 Pressure ulcer of other site, unspecified stage; D70.9 Neutropenia, unspecified; F32.9 Major depressive disorder, single episode, unspecified; Z66 Do not resuscitate; D63.8 Anemia in other chronic diseases classified elsewhere; L89.159 Pressure ulcer of sacral region, unspecified stage; E55.9 Vitamin D deficiency, unspecified; D50.9 Iron deficiency anemia, unspecified; R19.7 Diarrhea, unspecified; Z74.01 Bed confinement status
CPT/HCPCS: 36415; 36416; 36430; 36569; 71045; 80053; 80061; 80202; 80307; 81001; 82306; 82728; 83540; 83550; 83605; 83735; 84100; 84134; 84145; 84443; 85007; 85025; 85027; 85610; 85652; 85730; 86140; 86850; 86900; 86901; 87040; 87086; 87633; 93005; 93010; 96361; 96365; 96367; 96375; A4217; C1751; J1644; J2060; J2270; J2405; J2543; J3370; J3475; J3480; J3490; J7050; P9016; Q0162